=== PATIENT | female | born 1935 | race Caucasian/White ===

== ENCOUNTER → 2018-03-10 09:08 | Outpatient (CLI) | payer MEDICARE, SELFPAY | PROVIDERS: PCP Family Medicine; Visit Provider Family Medicine | DX: I49.9 Cardiac arrhythmia, unspecified (principal) | CPT/HCPCS: 93005 ==

== ENCOUNTER → 2018-03-13 12:42 | Outpatient (CLI) | payer MEDICARE, SELFPAY | PROVIDERS: PCP Family Medicine; Visit Provider Internal Medicine Cardiovascular Disease | DX: Z98.890 Other specified postprocedural states (principal) | CPT/HCPCS: 93225 ==

== ENCOUNTER → 2018-03-18 09:34 | Outpatient (CLI) | payer MEDICARE, SELFPAY | PROVIDERS: PCP Family Medicine; Visit Provider Internal Medicine Cardiovascular Disease | DX: Z98.890 Other specified postprocedural states (principal) | CPT/HCPCS: 93306 ==

== ENCOUNTER → 2019-12-31 08:30 | Outpatient (CLI) | payer MEDICARE, SELFPAY ==
--- NOTE | 2019-12-31 | CA_ITS ---
APPROVED REPORT Repair Department Supervisor: CLYDE Laterality: Bilateral Indications: vertigo Risk Factors Hypertension: Doppler Spectral Velocity Analysis ECA (R) 59.10/7.70 cm/s ECA (L) 70.00/8.30 cm/s dICA (R) 122.30/36.40 cm/s dICA (L) 82.20/25.00 cm/s Ana (R) 110.80/34.70 cm/s Ana (L) 72.60/24.40 cm/s pICA (R) 67.40/15.40 cm/s pICA (L) 59.10/17.30 cm/s dCCA (R) 62.90/16.70 cm/s dCCA (L) 68.10/17.30 cm/s pCCA (R) 86.00/16.70 cm/s pCCA (L) 84.80/14.80 cm/s Vert (R) 43.00/14.10 cm/s Vert (L) 43.00/11.60 cm/s ICA/CCA 1.94 ICA/CCA 1.21 Findings Duplex evaluation demonstrates stenosis of the right proximal internal carotid artery <20% with PSV <140 cm/sec, EDV <100 cm/sec, and IC/CC Ratio <4.0. Duplex evaluation demonstrates stenosis of the left proximal internal carotid artery <20% with PSV <140 cm/sec, EDV <100 cm/sec, and IC/CC Ratio <4.0. Conclusion Duplex evaluation demonstrates stenosis of the right proximal internal carotid artery <20% with PSV <140 cm/sec, EDV <100 cm/sec, and IC/CC Ratio <4.0. Duplex evaluation demonstrates stenosis of the left proximal internal carotid artery <20% with PSV <140 cm/sec, EDV <100 cm/sec, and IC/CC Ratio <4.0. Electronically signed by : Raleigh Stiles MD 12/31/2019 18:13:45
== END ==
PROVIDERS: PCP Family Medicine; Visit Provider Family Medicine
DX: R42 Dizziness and giddiness (principal)
CPT/HCPCS: 93225; 93226; 93880

== ENCOUNTER → 2020-01-13 11:38 | Outpatient (CLI) | payer MEDICARE, SELFPAY ==
[2020-01-13 12:20] LABS: Basophils # 0.1 K/mm3 (0-0.2); Basophils % 0.9 % (0.1-2.0); Eosinophils # 0.4 K/mm3 (0.0-0.4); Eosinophils % 6.9 % (0.1-12.0); Hematocrit 42.8 % (37.0-47.0); Hemoglobin 13.6 g/dL (12.2-16.2); Lymphocytes # 1.6 K/mm3 (0.7-4.5); Lymphocytes % 29.9 % (10-50); Mean Corpuscular HGB Conc 31.7 g/dL (31.8-35.4); Mean Corpuscular Hemoglobin 31.9 pg (27.0-31.2); Mean Corpuscular Volume 100.6 fl (81-99); Mean Platelet Volume 9.7 fl (7.4-10.4); Monocytes # 0.4 K/mm3 (0.1-1.0); Monocytes % 6.9 % (1.7-9.3); Neutrophils % 55.4 % (37.0-80.0); Platelet Count 155 K/mm3 (142-424); Red Blood Count 4.26 M/mm3 (4.20-5.40); Red Cell Distribution Width 13.9 % (11.5-17.5); White Blood Count 5.3 K/mm3 (4.8-10.8)
[2020-01-13 13:30] LABS: Chloride 103 mmol/L (98-107); Potassium 4.6 mmoL/L (3.5-5.1); Sodium 139 mmol/L (136-145)
[2020-01-13 13:33] LABS: Blood Urea Nitrogen 13 mg/dl (7-17); Estimated Glomerular Filt Rate 53 ml/min (>60); GFR (African American) 64 ML/MIN (>60)
[2020-01-13 13:34] LABS: Anion Gap 10.6 mEq/L (5-15); Calcium 9.6 mg/dl (8.4-10.2); Carbon Dioxide 30 mmol/L (22.0-30.0); Glucose 87 mg/dl (74-100)
[2020-01-13 14:46] LABS: Coronavirus 19 IgG Antibody Negative (Negative); Coronavirus 19 IgM Antibody Negative (Negative)
== END ==
PROVIDERS: Visit Provider Internal Medicine Cardiovascular Disease
DX: I10 Essential (primary) hypertension (principal); I48.0 Paroxysmal atrial fibrillation; I49.5 Sick sinus syndrome; R42 Dizziness and giddiness; R55 Syncope and collapse; R94.31 Abnormal electrocardiogram [ECG] [EKG]; Z98.890 Other specified postprocedural states; Z01.818 Encounter for other preprocedural examination
CPT/HCPCS: 36415; 80048; 85025; 86328

== ENCOUNTER 2020-01-14 10:11 | Day surgery (SDC) | payer MEDICARE, SELFPAY ==
[2020-01-14] VITALS (8 sets, daily range): BP systolic 133–153; BP diastolic 62–88; PULSE 73–113; RESP 16; O2SAT 90–100; BMI 22.3
--- NOTE | 2020-01-14 | IR_ITS ---
APPROVED REPORT Patient Location: Outpatient Meat Passer: JEFFY Ureña RT (R) PROCEDURES 1. Pocket formation for Permanent Pacemaker Placement. 2. Placement of an atrial sensing and pacing coil into the right atrial appendage. 3. Placement of a ventricular sensing and pacing coil in the right ventricular apex. 4. Permanent Pacemaker Placement. INDICATION Symptomatic Bradycardia Informed consent was obtained prior to the procedure. COMPLICATIONS None Estimated Blood Loss: Less than 10 ml TECHNIQUE 1% Lidocaine with epinephrine used to anesthetized the left anterior aspect of the chest. Scalpel was used to make the initial cutaneous incision while electrocautery was used to dissect down tinto the fascia. The fascia was lifted off the pectoralis muscle and digitally manipulated creating a pocket for the pacemaker. The patient was then placed in Trendelenburg position and the subclavian vein was accessed twice via the Selinger technique, there are two wires in the vein. A 6 [place] sheath was placed under fluoroscopic guidance into the subclavian vein over one of the wires while keeping the other wire in place within the subclavian vein. The dilator was removed from the sheath. Using fluoroscopic guidance, the ventricular lead was placed into the right ventricular apex, screwed and secured into place. Electronic interrogation proved acceptable thresholds and voltage within the lead. Using 3-0 silk, the ventricular lead was then secured into place. Lead was secured to the facia using the 3-0 silk. Following this, the sheath was pealed away. An additional 6 [place] fresh sheath and dilator was placed over the existing wire. Using fluoroscopic guidance, the atrial lead was the placed into the right atrial appendage and screwed and secured in place. Electrical interrogation demonstrated acceptable thresholds and voltage number. The atrial lead was then secured into place using 3-0 silk. 1 gram of Ancef was used to flush the pocket. Following the pacemaker generator being secured to the fascia and in place, Monocryl was used to close the subcutaneous layers while crystal were used to close the cutaneous layer. A pressure dressing was placed and the patient was transferred to the postop holding area in stable condition for postoperative care. INTERROGATION Generator Model: Virdia DR IS-1 L311 Generator Serial No: [id number] RA Lead Model: Ingevity + IS-1 Bi Postitive Fix RA/RV 45 CM 7840 RA Lead Serial No: [id number] RV Lead Model: Ingevity + IS-1 Bi Postitive Fix RA/RV 52 CM 7841 RA Lead Serial No: [id number] Device Measurements: RA Lead: Intrinsic: 1.5 mV Threshold: 1.2V@4.0ms Impedence: 450 Ohms RV Lead: Intrinsic: 12.0 mV Threshold: 0.3V@0.4 ms Impedence: 800 Ohms Parameters: Mode: DDDR Base/Max: 60/130ppm IMPRESSION 1. Successful Pocket formation for Permanent Pacemaker Placement. 2. Successful Placement of an atrial sensing and pacing coil into the right atrial appendage. 3. Successful Placement of a ventricular sensing and pacing coil in the right ventricular apex. 4. Successful Permanent Pacemaker Placement. PLAN 1. Post Op Wound Care Electronically signed by : Gaurav Galvez, 01/18/2020 11:20:40
--- NOTE | 2020-01-14 11:43 | XR_ITS ---
PROCEDURE: XR CHEST PORTABLE CLINICAL HISTORY: Confirm pacemaker/AID placement COMPARISON: No exams were available for comparison FINDINGS: Mild cardiomegaly. Bipolar pacemaker is present from left subclavian approach with right atrial right ventricular lead which appears to be in good position. Prior median sternotomy with AVR. No evidence of pneumothorax. There are minimal atelectatic changes in the lower lobes. IMPRESSION: As above, good pacemaker placement without evidence of pneumothorax Dictated by: Cornel Garcia MD 01/14/2020 16:49 Cornel aGrcia MD in [place] 01/14/2020 16:49
== END 2020-01-14 14:34 | disposition home or self-care (01) ==
LOC: CATHLAB 10:13
PROVIDERS: PCP Family Medicine; Visit Provider Internal Medicine
DX: I49.5 Sick sinus syndrome (principal); I48.0 Paroxysmal atrial fibrillation; I10 Essential (primary) hypertension; R55 Syncope and collapse
CPT/HCPCS: 33208; 71045; 99152; 99153; C1785; C1898

== ENCOUNTER 2020-07-01 14:02 | Emergency (ER) | payer MEDICARE, SELFPAY ==
[2020-07-01] VITALS (10 sets, daily range): BP systolic 95–134; BP diastolic 53–77; PULSE 45–91; RESP 14–30; TEMP 36.4; O2SAT 95–99; BMI 27.3
--- NOTE | 2020-07-01 14:28 | ECG_ITS ---
APPROVED REPORT Exam: Resting ECG HR:84 bpm ECG Measurements Heart Rate 84 AXES QRSd 70 QRS 62 QT 344 T -31 QTc 406 Conclusion Demand pacemaker, interpretation is based on intrinsic rhythm Atrial fibrillation with premature ventricular or aberrantly conducted complexes Nonspecific ST and T wave abnormality, probably digitalis effect Abnormal ECG Electronically signed by : Carlton Cortez, 07/02/2020 21:09:57
--- NOTE | 2020-07-01 14:47 | XR_ITS ---
PROCEDURE: XR CHEST PORTABLE CLINICAL HISTORY: SOB COMPARISON: CR XR CHEST PORTABLE from 01/14/2020 FINDINGS: The lung cohn are well expanded and appear clear of infiltrate. Cardiac size is normal. There has been a previous cardiac valve replacement likely aortic. There are sternal wire sutures. There is a left-sided cardiac pacemaker with dual chamber electrodes both in good position. IMPRESSION: No acute findings. Dictated by: Dr. Martín Palmer MD 07/01/2020 15:52 Dr. Martín Palmer MD in [place] 07/01/2020 15:52
[2020-07-01 15:07] LABS: Basophils % 0.4 % (0.1-2.0); Eosinophils # 0.2 K/mm3 (0.0-0.4); Eosinophils % 2.2 % (0.1-12.0); Hematocrit 43.3 % (37.0-47.0); Hemoglobin 13.3 g/dL (12.2-16.2); Lymphocytes # 1.2 K/mm3 (0.7-4.5); Lymphocytes % 15.7 % (10-50); Mean Corpuscular HGB Conc 30.8 g/dL (31.8-35.4); Mean Corpuscular Hemoglobin 30.2 pg (27.0-31.2); Mean Platelet Volume 9.6 fl (7.4-10.4); Monocytes # 0.4 K/mm3 (0.1-1.0); Monocytes % 5.1 % (1.7-9.3); Neutrophils # 5.8 K/mm3 (1.8-7.8); Neutrophils % 76.5 % (37.0-80.0); Platelet Count 172 K/mm3 (142-424); Red Blood Count 4.42 M/mm3 (4.20-5.40); White Blood Count 7.5 K/mm3 (4.8-10.8)
[2020-07-01 15:08] LABS: Chloride 106 mmol/L (98-107)
[2020-07-01 15:09] LABS: Potassium 4.1 mmoL/L (3.5-5.1); Sodium 137 mmol/L (136-145)
[2020-07-01 15:11] LABS: Alanine Aminotransferase 17 U/L (12-78); Albumin Level 4.1 g/dl (3.5-5.0); Albumin/Globulin Ratio 1.5 (1.1-1.8); Alkaline Phosphatase 66 U/L (38-126); Aspartate Amino Transferase 32 U/L (14-36); Bilirubin,Total 0.6 mg/dl (0.2-1.3); Blood Urea Nitrogen 19 mg/dl (7-17); Creatinine Clearance Estimated 33 mL/min (50-200); Estimated Glomerular Filt Rate 39 ml/min (>60); GFR (African American) 47 ML/MIN (>60); Globulin 2.7 g/dL (1.3-3.2); Total Protein,Serum 6.8 g/dl (6.3-8.2)
[2020-07-01 15:12] LABS: Anion Gap 8.1 mEq/L (5-15); Calcium 9.4 mg/dl (8.4-10.2); Carbon Dioxide 27 mmol/L (22.0-30.0); Glucose 116 mg/dl (74-100)
[2020-07-01 15:28] LABS: Troponin I < 0.01 ng/ml (0.00-0.034)
--- NOTE | 2020-07-01 15:29 | HMH.EDGENADL ---
ED Disposition Clinical Impression: Orthostatic hypotension Disposition: Home, Self-Care Condition on Discharge: Good Additional Instructions: Please drink plenty of fluids Please follow-up with your PCP Symptoms persist or worsen, please follow-up with your PCP or return to the ED Referrals: Adia Valverde MD [Primary Care Provider] - - Critical Care Critical Care Time: No Attestation: On 07/01/20, the high probability of a clinically significant, sudden or life threatening deterioration of the following system(s) required my full and direct attention, intervention and personal management. The time I documented below is in addition to time spent performing reported procedures but includes the following listed in this critical care notation. Medical Decision Making - Medical Records Medical records reviewed: Yes: I reviewed the patient's medical records. - [place] Inquiry Pt receiving controlled substance: No Vital Signs: 07/01/20 14:02 07/01/20 14:30 07/01/20 15:06 Temperature 97.6 F Temperature Source Oral Pulse Rate Pulse Rate [Left Radial] 64 51 L 84 Respiratory Rate 30 H 18 18 Blood Pressure Blood Pressure [Right Arm] 115/73 110/62 109/53 L Blood Pressure Mean Blood Pressure Mean [Right Arm] 87 78 71 Blood Pressure Source [Right Arm] Automatic Cuff Automatic Cuff Automatic Cuff Blood Pressure Position [Right Arm] Supine Sitting 02 Sat by Pulse Oximetry 97 98 98 Oxygen Delivery Method Room Air Room Air 07/01/20 15:17 07/01/20 16:31 07/01/20 17:00 Temperature Temperature Source Pulse Rate 63 68 Pulse Rate [Left Radial] 91 H Respiratory Rate 14 23 16 Blood Pressure 121/66 124/69 Blood Pressure [Right Arm] 95/58 L Blood Pressure Mean 84 94 Blood Pressure Mean [Right Arm] 70 Blood Pressure Source [Right Arm] Automatic Cuff Blood Pressure Position [Right Arm] Supine 02 Sat by Pulse Oximetry 95 97 Oxygen Delivery Method 07/01/20 17:20 07/01/20 17:30 Temperature Temperature Source Pulse Rate 46 L 55 L Pulse Rate [Left Radial] Respiratory Rate 19 23 Blood Pressure 134/54 L 117/77 Blood Pressure [Right Arm] Blood Pressure Mean 80 84 Blood Pressure Mean [Right Arm] Blood Pressure Source [Right Arm] Blood Pressure Position [Right Arm] 02 Sat by Pulse Oximetry 99 98 Oxygen Delivery Method - Lab Data Lab Results 07/01/20 14:48: WBC 7.5, RBC 4.42, Hgb 13.3, Hct 43.3, MCV 98.0, MCH 30.2, MCHC 30.8 L, RDW 14.0, Plt Count 172, MPV 9.6, Neut % (Auto) 76.5, Lymph % (Auto) 15.7, [place] % (Auto) 5.1, Eos % (Auto) 2.2, Baso % (Auto) 0.4, Neut # (Auto) 5.8, Lymph # (Auto) 1.2, [place] # (Auto) 0.4, Eos # (Auto) 0.2, Baso # (Auto) 0.0 07/01/20 14:48: Sodium 137, Potassium 4.1, Chloride 106, Carbon Dioxide 27, Anion Gap 8.1, BUN 19 H, Creatinine 1.30 H, Estimated Creat Clear 33, Estimated GFR 39 L, Est GFR ( Amer) 47 L, Glucose 116 H, Calcium 9.4, Total Bilirubin 0.6, AST 32, ALT 17, Alkaline Phosphatase 66, Troponin I < 0.01, Total Protein 6.8, Albumin 4.1, Globulin 2.7, Albumin/Globulin Ratio 1.5 Result diagrams: 07/01/20 14:48 07/01/20 14:48 Orders (Tests/Meds): ED MEDICATIONS Generic Name Dose Route Start Last Admin Trade Name Freq PRN Reason Stop Dose Admin Sodium Chloride 1,000 mls @ 999 mls/hr 07/01/20 15:15 07/01/20 15:19 Sod Chlor 0.9% 1000ml Bag IV 07/01/20 16:15 999 mls/hr .Q1H1M LEIGH ANN Administration ORDERS Category Date Time Status Troponin I Q3H Lab 07/01/20 17:48 Received Troponin I Q3H Lab 07/01/20 21:00 Ordered Medical Decision Narrative: Patient is a well-appearing 84-year-old female presenting with dizziness when standing and decreased p.o. intake. Patient has not had any vomiting or diarrhea, but was hypotensive at home. Differential diagnose includes but not limited to orthostatic hypotension, vertigo, electrolyte abnormality. Labs including CBC, CMP were obtained. Patient was given a
[2020-07-01 18:19] LABS: Troponin I < 0.01 ng/ml (0.00-0.034)
== END 2020-07-01 18:37 | disposition home or self-care (01) ==
PROVIDERS: Emergency Provider Emergency Medicine; PCP Family Medicine
DX: I95.1 Orthostatic hypotension (principal); I10 Essential (primary) hypertension; I25.10 Atherosclerotic heart disease of native coronary artery without angina pectoris; Z95.0 Presence of cardiac pacemaker; Z98.890 Other specified postprocedural states
CPT/HCPCS: 71045; 80053; 84484; 85025; 93005; 96365; 99283

== ENCOUNTER → 2021-01-11 11:58 | Outpatient (CLI) | payer MEDICARE, SELFPAY ==
[2021-01-11 12:46] LABS: Chloride 105 mmol/L (98-107); Sodium 139 mmol/L (136-145)
[2021-01-11 12:47] LABS: Potassium 4.2 mmoL/L (3.5-5.1)
[2021-01-11 12:49] LABS: Anion Gap 9.2 mEq/L (5-15); Blood Urea Nitrogen 12 mg/dl (7-17); Carbon Dioxide 29 mmol/L (22.0-30.0); Estimated Glomerular Filt Rate 53 ml/min (>60); GFR (African American) 64 ML/MIN (>60)
[2021-01-11 12:50] LABS: Calcium 9.2 mg/dl (8.4-10.2); Glucose 92 mg/dl (74-100)
== END ==
PROVIDERS: Visit Provider Physician Assistant
DX: I10 Essential (primary) hypertension (principal); I48.0 Paroxysmal atrial fibrillation
CPT/HCPCS: 36415; 80048

== ENCOUNTER → 2021-08-22 08:57 | Outpatient (CLI) | payer MEDICARE, SELFPAY ==
--- NOTE | 2021-08-22 09:02 | XR_ITS ---
FINAL REPORT TECHNIQUE: Bone densitometry calculations of the lumbar spine and left hip were obtained. CLINICAL HISTORY: . osteopenia FINDINGS: Using L1-4, the bone mineral density of the spine is 0.864 g/cm2, corresponding to T-score of -1.7. Using the left hip, the bone mineral density of the femoral neck is 0.514 g/cm2, corresponding to a T-score of -3.0. NOTE: T-score: Standard deviation compared with peak bone mass of young adult mean. *Following the recommendations of the International Society of Bone densitometry, classification of hip BMD is based on the lower of two T-scores; total hip or femoral neck. 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 Reviewed, Interpreted and Dictated by Danielle Fuentes MD Transcribed by Adrien Bauer Authenticated by Danielle Fuentes MD on 08/24/2021 04:59:34 PM [facility]
--- NOTE | 2021-08-22 09:03 | XR_ITS ---
FINAL REPORT CLINICAL HISTORY: low back pain FINDINGS: AP, lateral, and oblique views of the lumbar spine were obtained. There is no acute fracture. There is very mild grade 1 anterior spondylolisthesis of L4 on L5. There is dextroscoliosis. Vertebral body height is preserved. There is multilevel degenerative disc disease most pronounced in the lower lumbar levels. No acute paraspinal abnormality is identified. IMPRESSION: Multilevel degenerative disc disease most pronounced in the lower lumbar levels. Very mild grade 1 anterior spondylolisthesis of L4 on L5. Reviewed, Interpreted and Dictated by Danielle Fuentes MD Transcribed by Farnaz Granda Authenticated by Danielle Fuentes MD on 08/22/2021 01:16:31 PM [facility]
--- NOTE | 2021-08-22 09:03 | XR_ITS ---
FINAL REPORT CLINICAL HISTORY: rt hip pain FINDINGS: AP and frog leg views of the right hip with an AP pelvis were obtained. There is no prior exam for comparison. There is no acute fracture or dislocation. There is degenerative joint disease of the hips bilaterally, asymmetric to the right. Soft tissues are within normal limits. IMPRESSION: 1. No acute osseous abnormality of the right hip. 2. Degenerative disease of the right hip. Reviewed, Interpreted and Dictated by Danielle Fuentes MD Transcribed by Farnaz Granda Authenticated by Danielle Fuentes MD on 08/22/2021 01:19:[address] [facility]
== END ==
PROVIDERS: PCP Family Medicine; Visit Provider Family Medicine
DX: M85.89 Other specified disorders of bone density and structure, multiple sites (principal); M25.551 Pain in right hip; M54.41 Lumbago with sciatica, right side
CPT/HCPCS: 72110; 73502; 77080

== ENCOUNTER → 2021-10-01 08:54 | Outpatient (CLI) | payer MEDICARE, SELFPAY ==
[2021-09-28 19:55] LABS: Alanine Aminotransferase 9 U/L (12-78); Albumin Level 3.8 g/dl (3.5-5.0); Albumin/Globulin Ratio 1.7 (1.1-1.8); Alkaline Phosphatase 61 U/L (38-126); Anion Gap 9.4 mEq/L (5-15); Aspartate Amino Transferase 20 U/L (14-36); Blood Urea Nitrogen 17 mg/dl (7-17); Calcium 9.1 mg/dl (8.4-10.2); Carbon Dioxide 29 mmol/L (22.0-30.0); Chloride 103 mmol/L (98-107); Estimated Glomerular Filt Rate 53 ml/min (>60); GFR (African American) 64 ML/MIN (>60); Globulin 2.3 g/dL (1.3-3.2); Glucose 72 mg/dl (74-100); Potassium 4.4 mmoL/L (3.5-5.1); Sodium 137 mmol/L (136-145); Total Protein,Serum 6.1 g/dl (6.3-8.2)
[2021-09-28 19:57] LABS: Bilirubin,Total 0.1 mg/dl (0.2-1.3)
== END ==
PROVIDERS: Visit Provider Family Medicine
DX: I10 Essential (primary) hypertension (principal)
CPT/HCPCS: 80053

== ENCOUNTER → 2022-01-01 10:08 | Outpatient (CLI) | payer MEDICARE, SELFPAY ==
--- NOTE | 2022-01-01 10:20 | XR_ITS ---
FINAL REPORT CLINICAL HISTORY: rt hip pain COMPARISON: 08/22/2021 FINDINGS: Right hip Three views were obtained. There is no acute fracture or dislocation. There are severe right and mild left degenerative changes. There are moderate to severe degenerative changes of the lower lumbar spine. Multiple phleboliths are noted. No acute soft tissue abnormality is identified. IMPRESSION: Degenerative changes as detailed above. Reviewed, Interpreted and Dictated by Sean Clancy III, MD Transcribed by Maritza Mccray Authenticated and [facility]
== END ==
PROVIDERS: PCP Family Medicine; Visit Provider Orthopaedic Surgery
DX: M16.11 Unilateral primary osteoarthritis, right hip (principal)
CPT/HCPCS: 73502

== ENCOUNTER → 2022-01-08 11:00 | Outpatient (CLI) | payer MEDICARE, SELFPAY ==
[2022-01-08 19:06] LABS: Anion Gap 13.5 mEq/L (5-15); Blood Urea Nitrogen 17 mg/dl (7-17); Calcium 8.7 mg/dl (8.4-10.2); Carbon Dioxide 25 mmol/L (22.0-30.0); Chloride 102 mmol/L (98-107); Estimated Glomerular Filt Rate 52 ml/min (>60); GFR (African American) 63 ML/MIN (>60); Glucose 143 mg/dl (74-100); Potassium 4.5 mmoL/L (3.5-5.1); Sodium 136 mmol/L (136-145)
== END ==
PROVIDERS: PCP Family Medicine; Visit Provider Family Medicine
DX: I48.0 Paroxysmal atrial fibrillation (principal)
CPT/HCPCS: 80048

== ENCOUNTER 2022-01-18 10:11 | Day surgery (SDC) | payer MEDICARE, SELFPAY ==
[2022-01-18 10:49] VITALS: BP 110/81; PULSE 86; RESP 18; TEMP 36.6; O2SAT 94; BMI 21.5
[2022-01-18 11:12] LABS: Basophils # 0.1 K/mm3 (0-0.2); Basophils % 0.7 % (0.1-2.0); Eosinophils # 0.1 K/mm3 (0.0-0.4); Eosinophils % 0.9 % (0.1-12.0); Hematocrit 41.5 % (37.0-47.0); Hemoglobin 13.2 g/dL (12.2-16.2); Lymphocytes # 1.8 K/mm3 (0.7-4.5); Lymphocytes % 19.8 % (10-50); Mean Corpuscular HGB Conc 31.9 g/dL (31.8-35.4); Mean Corpuscular Hemoglobin 30.3 pg (27.0-31.2); Mean Platelet Volume 9.6 fl (7.4-10.4); Monocytes # 0.6 K/mm3 (0.1-1.0); Monocytes % 6.4 % (1.7-9.3); Neutrophils # 6.6 K/mm3 (1.8-7.8); Neutrophils % 72.2 % (37.0-80.0); Platelet Count 236 K/mm3 (142-424); Red Blood Count 4.37 M/mm3 (4.20-5.40); Red Cell Distribution Width 14.7 % (11.5-17.5); White Blood Count 9.1 K/mm3 (4.8-10.8)
[2022-01-18 11:25] LABS: Anion Gap 10.6 mEq/L (5-15); Blood Urea Nitrogen 16 mg/dl (7-17); Calcium 8.4 mg/dl (8.4-10.2); Carbon Dioxide 31 mmol/L (22.0-30.0); Chloride 101 mmol/L (98-107); Creatinine Clearance Estimated 30 mL/min (50-200); Estimated Glomerular Filt Rate 47 ml/min (>60); GFR (African American) 57 ML/MIN (>60); Glucose 87 mg/dl (74-100); Potassium 3.6 mmoL/L (3.5-5.1); Sodium 139 mmol/L (136-145)
[2022-01-18 11:53] VITALS: BP 79/51; PULSE 73; RESP 18; O2SAT 93
--- NOTE | 2022-01-18 11:53 | EXP.OP.NOTE ---
Date of procedure: 01/18/22 Pre-op Diagnosis:: Right hip osteoarthritis Post-op Diagnosis:: Same Procedure performed:: Right hip injection with arthrogram Surgeon:: Bronson James DO Anesthesia: MAC Estimated blood loss (mL): 0 Operative findings:: Right hip osteoarthritis Operative note:: Patient identified preoperatively right hip marked with a yes and my initials. Transferred operative suite placed supine on the radiolucent bed. Sedation given. Right hip prepped and draped normal sterile fashion. Once prepped and draped final operative timeout performed to identify proper patient procedure and extremity everyone involved the case agreed no counter indication beginning. C-arm was brought into identify the right hip joint. C arm was used to confirm proper trajectory 18-gauge spinal needle into the hip joint. Once within the hip joint arthrogram was performed with contrast. 80 mg Kenalog 3 cc 1% lidocaine injected the hip joint. Needle removed Band-Aid placed patient waken sedation taken recovery stable condition Condition: stable Disposition: PACU Complications:: None apparent
--- NOTE | 2022-01-18 11:54 | XR_ITS ---
FINAL REPORT CLINICAL HISTORY: RT HIP INJECTION IN OR 3.25 fluoro time FINDINGS: Fluoroscopic guidance was provided for the operating services. A single spot film was provided. 3 minutes 25 seconds of fluoroscopy time was utilized. IMPRESSION: 3 minutes 25 seconds of fluoroscopy time. Reviewed, Interpreted and Dictated by Sean Clancy III, MD Transcribed by Adrien Bauer Authenticated and [facility]
[2022-01-18 12:03] VITALS: BP 96/53; PULSE 69; RESP 18; O2SAT 98
[2022-01-18 12:20] VITALS: BP 110/69; PULSE 69; RESP 18; O2SAT 98
--- NOTE | 2022-01-18 12:37 | P.PN_ITS ---
[facility] Medical History Abnormal Holter monitor finding Arthropathy of right hip Prednisone ordered. We will schedule appointment with orthopedic surgery. Cardiac pacemaker in situ Dizziness Lightheaded Near syncope PAC (premature atrial contraction) PAF (paroxysmal atrial fibrillation) PVC (premature ventricular contraction) Sick sinus syndrome Surgical History History of mitral valve repair Family History Other Coronary artery disease Social History (Updated 01/18/22 @ 10:48 by Sonu Cartagena RN) Smoking Status: Never smoker alcohol intake: never substance use type: denies use current occupational status: employed Travel in the last 8 weeks: None household members: other current occupation: accountant certified public caffeine: No [facility] Anesthesia Checklist Patient Identification Patient Identification: Arm Band and Verbal (Name & ) Structural Data Admitted From: Home Planned Operative Procedure/s: RIGHT HIP INJECTION Consent for Planned Operative Procedure(s) Verified: Yes Verified Documents: Surgical Consent NPO Status Verified Time NPO: 07:00 Chart Verification Results Verified: CBC Additional verifications Anesthesia Reactions: No Hx Blood Transfusions: No Blood Transfusion Reaction: No Airway Assessment C-Spine Mobility Assessed: Yes TMJ Mobility Assessed: Yes Dentition: Good Dentition Neurological Assessment Level of Consciousness: Awake, Alert and Appropriate Anesthesia Plan Anesthesia Risk discussed: Yes ASA Class: III Anesthesia Type: MAC
== END 2022-01-18 12:23 | disposition home or self-care (01) ==
PROVIDERS: PCP Family Medicine; Visit Provider Orthopaedic Surgery
DX: M16.11 Unilateral primary osteoarthritis, right hip (principal); I49.5 Sick sinus syndrome; Z95.0 Presence of cardiac pacemaker; Z79.899 Other long term (current) drug therapy; I48.91 Unspecified atrial fibrillation
CPT/HCPCS: 20610; 36415; 73502; 76000; 80048; 85025

== ENCOUNTER 2022-09-09 16:52 | Inpatient (IN) | payer MEDICARE, SELFPAY ==
[2022-09-09] VITALS (13 sets, daily range): BP systolic 117–154; BP diastolic 47–92; PULSE 78–90; RESP 17–21; TEMP 36.4–37.1; O2SAT 96–100; BMI 16.5
--- NOTE | 2022-09-09 17:09 | CT_ITS ---
PROCEDURE INFORMATION: Exam: CT Abdomen And Pelvis With Contrast Exam date and time: 09/09/2022 6:06 PM Age: 86 years old Clinical indication: Other: Dark tar stool; Additional info: Dark tarry stool TECHNIQUE: Imaging protocol: Computed tomography of the abdomen and pelvis with contrast. Radiation optimization: All CT scans at this facility use at least one of these dose optimization techniques: automated exposure control; mA and/or kV adjustment per patient size (includes targeted exams where dose is matched to clinical indication); or iterative reconstruction. Contrast material: ISOVUE; Contrast volume: 75 ml; Contrast route: IV; REPORTING DATA: Count of CT and Cardiac NM exams in prior 12 months: This patient has received 0 known CTs and 0 known cardiac nuclear medicine studies in the 12 months prior to the current study. COMPARISON: CR XR HIP RT 2-3V W/PELVIS 01/18/2022 11:45 AM FINDINGS: Tubes, catheters and devices: Pacemaker leads partially visualized without gross complication or change. Retained epicardial leads noted in the rightward epigastric region. Lungs: Mild atelectasis in the lung bases. Respiratory motion limits assessment of the lung bases. Heart: Moderate cardiomegaly. Diaphragm: Small hiatal hernia. Liver: Mild fatty infiltration of the liver. Normal contour. Well-circumscribed low-density lesion in the right hepatic lobe demonstrating benign CT features most consistent with hepatic cyst. No further imaging characterization/followup is required based on current consensus criteria. No intrahepatic biliary ductal dilatation. Gallbladder and bile ducts: Gallbladder assessment limited by respiratory motion artifact without gross abnormality. Nondilated bile ducts. Pancreas: Normal. No inflammatory changes or ductal dilation. Spleen: Normal. No splenomegaly. Adrenal glands: Normal. No adrenal mass. Kidneys and ureters: No acute abnormalities. No hydronephrosis or hydroureter. No urinary tract stones are identified. Bilateral subcentimeter renal cortical cysts are present which do not require further assessment. Stomach and bowel: The stomach is largely contracted. The small bowel is nondilated with no gross abnormality. Generalized mild colonic wall thickening suggesting colitis. No perforation or abscess. No sites of active GI hemorrhage are identified with single phase technique. Appendix: The appendix demonstrates slight wall thickening commensurate with the generalized colonic wall thickening and felt to be related to generalized colitis, with no dilatation or periappendiceal stranding to suggest appendicitis. Intraperitoneal space: No free fluid or air. Vasculature: No acute process. No abdominal aortic aneurysm. Moderate calcific atherosclerosis. Lymph nodes: No adenopathy. Urinary bladder: Unremarkable as visualized. Reproductive: Unremarkable as visualized. Bones/joints: Prior median sternotomy. No acute osseous abnormalities. Osteopenia. Rightward convexity lumbar scoliosis. Bipolar right hip arthroplasty without gross hardware complication. Multilevel moderate lumbar disc degenerative changes and osteoarthritic spurring. Soft tissues: Small fatty periumbilical hernia . No evidence of associated bowel herniation or strangulation. IMPRESSION: 1. No sites of active GI hemorrhage are identified. Nuclear medicine tagged RBC GI bleeding study would allow more sensitive/specific assessment for active GI hemorrhage if clinically indicated. 2. Mild generalized colonic wall thickening with slight adjacent stranding, suspicious for colitis. No perforation or abscess. 3. Additional nonemergent findings detail
[2022-09-09 17:30] LABS: Basophils % 0.3 % (0.1-2.0); Eosinophils # 0.1 K/mm3 (0.0-0.4); Eosinophils % 0.6 % (0.1-12.0); Hematocrit 26.2 % (37.0-47.0); Lymphocytes % 12.3 % (10-50); Mean Corpuscular HGB Conc 30.7 g/dL (31.8-35.4); Mean Corpuscular Hemoglobin 29.2 pg (27.0-31.2); Mean Corpuscular Volume 95.2 fl (81-99); Monocytes # 0.4 K/mm3 (0.1-1.0); Monocytes % 4.6 % (1.7-9.3); Neutrophils # 6.4 K/mm3 (1.8-7.8); Neutrophils % 82.1 % (37.0-80.0); Platelet Count 220 K/mm3 (142-424); Red Blood Count 2.75 M/mm3 (4.20-5.40); Red Cell Distribution Width 18.6 % (11.5-17.5); White Blood Count 7.7 K/mm3 (4.8-10.8)
[2022-09-09 17:31] LABS: Alanine Aminotransferase 20 U/L (12-78); Albumin Level 3.1 g/dl (3.5-5.0); Albumin/Globulin Ratio 1.3 (1.1-1.8); Alkaline Phosphatase 58 U/L (38-126); Anion Gap 13.6 mEq/L (5-15); Aspartate Amino Transferase 27 U/L (14-36); Bilirubin,Total 0.3 mg/dl (0.2-1.3); Blood Urea Nitrogen 55 mg/dl (7-17); Calcium 7.9 mg/dl (8.4-10.2); Carbon Dioxide 20 mmol/L (22.0-30.0); Chloride 109 mmol/L (98-107); Creatinine Clearance Estimated 28 mL/min (50-200); Estimated Glomerular Filt Rate 59 ml/min (>60); GFR (African American) 72 ML/MIN (>60); Globulin 2.3 g/dL (1.3-3.2); Glucose 104 mg/dl (74-100); Potassium 4.6 mmoL/L (3.5-5.1); Sodium 138 mmol/L (136-145); Total Protein,Serum 5.4 g/dl (6.3-8.2)
[2022-09-09 17:31] LABS: Occult Blood,Stool Positive (Negative)
[2022-09-09 17:48] LABS: Troponin I < 0.01 ng/ml (0.00-0.034)
--- NOTE | 2022-09-09 18:08 | PC.NURSE ---
pt to CT at this time
[2022-09-09 18:34] LABS: Coronavirus 19, PCR Not Detected (NotDetected); Influenza A, PCR Not Detected (NotDetected); Influenza B, PCR Not Detected (NotDetected)
--- NOTE | 2022-09-09 18:45 | HMH.EDGENADL ---
Discharge Plan Disposition Patient Disposition: Admitted Condition: Fair Chief Complaint: GI Bleed Prescriptions Prescriptions: No Action aspirin [Adult Low Dose Aspirin] 81 mg tablet,delayed release (DR/EC) 81 mg PO DAILY vitamin B complex [B Complex-Vitamin B12] tablet 1 tab PO DAILY cholecalciferol (vitamin D3) 2,000 unit capsule 2,000 unit PO DAILY tramadol 50 mg tablet 50 mg PO Q6H PRN (Reason: hip pain) Qty: 40 0RF metoprolol succinate 25 mg tablet extended release 24 hr 25 mg PO DAILY Qty: 90 3RF celecoxib 200 mg capsule 200 mg PO DAILY tizanidine 2 mg tablet 2 mg PO DAILY oxycodone 5 mg tablet 5 mg PO NEEDED PRN (Reason: Pain) diltiazem HCl 120 mg capsule,extended release 24hr 120 mg PO DAILY furosemide 20 mg tablet See Rx Instructions .ROUTE .COMPLEX Rx Instructions: TAKE 1 TABLET BY MOUTH EVERY OTHER DAY fluticasone propion-salmeterol [Wixela Inhub] 100-50 mcg/dose blister with device See Rx Instructions .ROUTE .COMPLEX Rx Instructions: INHALE 1 PUFF TWICE A DAY FOR BRONCHIOLITIS Eliquis 2.5 mg tablet See Rx Instructions .ROUTE .COMPLEX Rx Instructions: TAKE 1 TABLET BY MOUTH TWICE A DAY Referrals Follow up/Referrals: Adia Valverde MD [Primary Care Provider] - See instructions Instructions Patient Instructions: DI for Gastrointestinal Bleeding Discharge ED Provider: Evan Wagoner Adult HPI General Chief complaint: GI Bleed Stated complaint: weakness Time Seen by Provider: 09/09/22 17:50 Mode of Arrival: EMS Source of Information: Patient Limitations: No Limitations Description of Symptoms (Recalled from ER Triage Doc. by RN): pt to the ED with dizziness, light headed and 3 episodes of dark tarry stools since this morning. pt denies any nausea,vomiting or abdominal pain. pt is on eliquis for her afib. History of Present Illness HPI narrative: This is a 86-year-old female who is on Eliquis who presents to the emergency room with lower abdominal pain and black stool. No nausea vomiting patient also complaining of lightheadedness. Related Data Home Medications Medication Instructions Recorded Confirmed aspirin 81 mg tablet,delayed 81 mg PO DAILY . 03/13/18 08/13/22 release (Adult Low Dose Aspirin) cholecalciferol (vitamin D3) 50 2,000 unit PO DAILY Supplement 03/13/18 08/13/22 mcg (2,000 unit) capsule vitamin B complex (B 1 tab PO DAILY Supplement 03/13/18 08/13/22 Complex-Vitamin B12 tablet) apixaban 2.5 mg tablet (Eliquis) See Rx Instructions .Route 09/09/22 09/09/22 .COMPLEX afib celecoxib 200 mg capsule 200 mg PO DAILY migraines 09/09/22 09/09/22 diltiazem HCl 120 mg 120 mg PO DAILY afib 09/09/22 09/09/22 capsule,extended release 24 hr fluticasone 100 mcg-salmeterol 50 See Rx Instructions .Route 09/09/22 09/09/22 mcg/dose blistr powdr for .COMPLEX SOB inhalation (Wixela Inhub) furosemide 20 mg tablet See Rx Instructions .Route 09/09/22 09/09/22 .COMPLEX Fluid oxycodone 5 mg tablet 5 mg PO NEEDED PRN Pain 09/09/22 09/09/22 tizanidine 2 mg tablet 2 mg PO DAILY muscle spasms 09/09/22 09/09/22 Previous Rx's Medication Instructions Recorded tramadol 50 mg tablet 50 mg PO Q6H PRN hip pain #40 tabs 05/17/22 metoprolol succinate 25 mg 25 mg PO DAILY bp #90 tabs 07/15/22 tablet,extended release 24 hr Allergies Allergy/AdvReac Type Severity Reaction Status Date / Time No Known Allergies Allergy Verified 08/13/22 11:43 [facility] Disclaimer: The information contained in this section may have been updated after the patient was seen, as this information can be updated by other users. Medical History Abnormal Holter monitor finding Arthropathy of right hip Bronchiolitis Cardiac pacemaker in situ Cough Dizziness Lightheaded Near syncope PAC (premature atrial contraction) PAF (paroxys
--- NOTE | 2022-09-09 18:46 | PC.NURSE ---
notified greenhouse worker of admission
--- NOTE | 2022-09-09 18:47 | PC.NURSE ---
impregnating tank operator paging surgeon medical director occupational health
--- NOTE | 2022-09-09 18:49 | PC.NURSE ---
gripper machine operator states had to leave a message for dr. aguilar
--- NOTE | 2022-09-09 18:56 | PC.NURSE ---
pt placed on a purwick at this time
--- NOTE | 2022-09-09 19:06 | ECG_ITS ---
APPROVED REPORT Exam: Resting ECG HR:83 bpm ECG Measurements Heart Rate 83 AXES QRSd 88 QRS 79 QT 385 T -1 QTc 425 Conclusion ATRIAL FIBRILLATION POSSIBLE RIGHT VENTRICULAR CONDUCTION DELAY [RSR (QR) IN V1/V2] MODERATE T-WAVE ABNORMALITY, CONSIDER ANTEROLATERAL ISCHEMIA [-0.1+ mV T-WAVE IN V3-V6] MODERATE T-WAVE ABNORMALITY, CONSIDER INFERIOR ISCHEMIA [-0.1+ mV T-WAVE IN II/aVF] ABNORMAL ECG UNCONFIRMED REPORT Electronically signed by : Carlton Cortez MD 09/10/2022 20:07:35
--- NOTE | 2022-09-09 19:16 | PC.NURSE ---
report given to RHONDA Simon
--- NOTE | 2022-09-09 19:18 | PC.NURSE ---
IV pump unavailable at this time. protonix drip mix and sent up with pt and given in report with RHONDA Randolph
--- NOTE | 2022-09-09 19:33 | PC.NURSE ---
pt arrived to floor at this time
[2022-09-09 21:15] LABS: Troponin I < 0.01 ng/ml (0.00-0.034)
[2022-09-09 23:54] LABS: Troponin I < 0.01 ng/ml (0.00-0.034)
[2022-09-10] VITALS (23 sets, daily range): BP systolic 115–154; BP diastolic 53–71; PULSE 58–95; RESP 16–20; TEMP 36.3–37.1; O2SAT 90–100
[2022-09-10 02:14] LABS: Hematocrit 27.9 % (37.0-47.0); Hemoglobin 8.5 g/dL (12.2-16.2)
--- NOTE | 2022-09-10 07:12 | EXP.SURG.CON ---
History of Present Illness *Admission Date: 09/10/22 *Reason for visit:: GI bleeding *History of present illness: Patient is an 86-year-old female from [place] with history of mitral valve repair on Eliquis. She has cardiac pacemaker. She presented to the emergency department the afternoon of 09/09/2022 with complaints of dizziness, lightheadedness, and dark tarry stools. She was found to have hemoglobin of 8.0, BUN 55, creatinine 0.9. Baseline hemoglobin is 13. CT scan was performed which revealed no sites of active GI hemorrhage . She was admitted for inpatient management. She was transfused 1 unit with resultant hemoglobin of 8.5. [facility] Disclaimer: The information contained in this section may have been updated after the patient was seen, as this information can be updated by other users. Medical History (Updated 09/10/22 @ 08:24 by Maritza Alvarado APRN) Abnormal Holter monitor finding Arthropathy of right hip Bronchiolitis Cardiac pacemaker Cardiac pacemaker in situ Cough Dizziness Lightheaded Near syncope PAC (premature atrial contraction) PAF (paroxysmal atrial fibrillation) PVC (premature ventricular contraction) Sick sinus syndrome Surgical History (Updated 09/10/22 @ 08:09 by Maritza Alvarado APRN) History of mitral valve repair History of right hip replacement Family History (Updated 09/10/22 @ 08:12 by Maritza Alvarado APRN) Coronary artery disease Cancer Social History (Updated 09/09/22 @ 23:06 by Kristie Valverde RN) Smoking Status: Never smoker alcohol intake: never substance use type: denies use current occupational status: employed Travel in the last 8 weeks: None household members: other current occupation: gl accountant caffeine: No Meds Home Medications and Allergies Home Medications Medication Instructions Recorded Confirmed Type aspirin 81 mg tablet,delayed 81 mg PO DAILY . 03/13/18 09/09/22 History release (Adult Low Dose Aspirin) cholecalciferol (vitamin D3) 50 2,000 unit PO DAILY Supplement 03/13/18 09/09/22 History mcg (2,000 unit) capsule vitamin B complex (B 1 tab PO DAILY Supplement 03/13/18 09/09/22 History Complex-Vitamin B12 tablet) celecoxib 200 mg capsule 200 mg PO DAILY migraines 09/09/22 09/09/22 History diltiazem HCl 120 mg 120 mg PO DAILY afib 09/09/22 09/09/22 History capsule,extended release 24 hr oxycodone 5 mg tablet 5 mg PO NEEDED PRN Pain 09/09/22 09/09/22 History tizanidine 2 mg tablet 2 mg PO DAILY muscle spasms 09/09/22 09/09/22 History apixaban 2.5 mg tablet (Eliquis) 2.5 mg PO BID Atrial fibrillation 09/10/22 09/10/22 History fluticasone 100 mcg-salmeterol 50 1 inh inhalation BID Breathing 09/10/22 09/10/22 History mcg/dose blistr powdr for problems inhalation (Wixela Inhub) furosemide 20 mg tablet 20 mg PO Q48H Fluid 09/10/22 09/10/22 History metoprolol succinate 25 mg 25 mg PO DAILY High blood pressure 09/10/22 09/10/22 History tablet,extended release 24 hr tramadol 50 mg tablet 50 mg PO Q6H PRN Pain 09/10/22 09/10/22 History New Prescriptions to Start Prescriptions: Allergies Allergy/AdvReac Type Severity Reaction Status Date / Time No Known Allergies Allergy Verified 08/13/22 11:43 Exam (Inpt) Vital signs and Labs for Last 24 Hours: Temp Pulse Resp BP Pulse Ox 97.3 F L 76 20 136/54 L 100 09/10/22 02:05 09/10/22 02:05 09/10/22 02:05 09/10/22 02:05 09/10/22 02:05 Laboratory Results - last 24 hr 09/09/22 17:09: Stool Occult Blood Positive A 09/09/22 17:10: WBC 7.7, RBC 2.75 L, Hgb 8.0 L, Hct 26.2 L, MCV 95.2, MCH 29.2, MCHC 30.7 L, RDW 18.6 H, Plt Count 220, MPV 9.0, Neut % (Auto) 82.1 H, Lymph % (Auto) 12.3, [place] % (Auto) 4.6, Eos % (Auto) 0.6, Baso % (Auto) 0.3, Neut # (Auto) 6.4, Lymph # (Auto) 1.0, [place] # (Auto) 0.4, Eos # (Auto) 0.1, Baso # (Auto) 0.0 09/09/22 17:10: Sodium 138, Potassium 4.6, Chloride 109 H, Carbon Dioxide 20 L, Anion Gap 13.6, BUN 55 H, Creat
--- NOTE | 2022-09-10 08:02 | EXP.HP ---
History of Present Illness *Admission Date: 09/10/22 *History of present illness: Patient is an 86-year-old female from [place] followed by Dr. Valverde with history of mitral valve repair on [facility]. She has cardiac pacemaker. She also has a history of hypertension, hyperlipidemia, osteopenia,. She had a recent hip replacement in July of this year at [facility] and has been doing well postoperatively. She has had home physical therapy and is able to walk with and without her walker. A.m. of admission patient states she had sudden onset of diarrhea with a total of 3 episodes. She describes the stools as being dark and black. Thus she presented to the emergency department the afternoon of 09/09/2022 with complaints of dizziness, lightheadedness, and dark tarry stools. She was found to have hemoglobin of 8.0, BUN 55, creatinine 0.9. Baseline hemoglobin is 13. CT scan was performed which revealed no sites of active GI hemorrhage . She was admitted for inpatient management. She was transfused 1 unit with resultant hemoglobin of 8.5. Patient denies fever and nausea, vomiting, and abdominal pain. Also to note she has been taking a daily baby aspirin. CT scan results: IMPRESSION: 1. ? No sites of active GI hemorrhage are identified. Nuclear medicine tagged RBC GI bleeding study would allow more sensitive/specific assessment for active GI hemorrhage if clinically indicated. 2. ? Mild generalized colonic wall thickening with slight adjacent stranding, suspicious for colitis. No perforation or abscess. 3. ? Additional nonemergent findings detailed above. Patient states she has had additional black stools since admission. Her chief complaint this morning is that she cannot void. Nursing will assist her up to the bathroom to see if this helps. She denies nausea, chest pain, abdominal pain, and shortness of breath. She has been on iron in the past. This caused constipation and she does not take it currently. [facility] Disclaimer: The information contained in this section may have been updated after the patient was seen, as this information can be updated by other users. Medical History (Updated 09/10/22 @ 08:24 by Maritza Alvarado APRN) Abnormal Holter monitor finding Arthropathy of right hip Bronchiolitis Cardiac pacemaker Cardiac pacemaker in situ Cough Dizziness Lightheaded Near syncope PAC (premature atrial contraction) PAF (paroxysmal atrial fibrillation) PVC (premature ventricular contraction) Sick sinus syndrome Surgical History (Updated 09/10/22 @ 08:09 by Maritza Alvarado APRN) History of mitral valve repair History of right hip replacement Family History (Updated 09/10/22 @ 08:12 by Maritza Alvarado APRN) Coronary artery disease Cancer Social History (Updated 09/09/22 @ 23:06 by Kristie Valverde RN) Smoking Status: Never smoker alcohol intake: never substance use type: denies use current occupational status: employed Travel in the last 8 weeks: None household members: other current occupation: property staff accountant caffeine: No Review of Systems Constitutional Constitutional: Denies fever(s) and Denies frequent falls Eyes Eyes: Denies change in vision and Denies loss of vision ENT Ears, Nose, Mouth, and Throat: Denies disequilibrium, Reports dizziness, Denies otalgia, Denies sore throat and Reports vertigo *Cardiovascular Cardiovascular: Denies chest pain, Denies dyspnea and Denies leg edema *Respiratory Respiratory: Denies cough and Denies dyspnea *Gastrointestinal Gastrointestinal: Denies abdominal pain, Reports change in bowel habits, Reports change in stool character, Reports constipation, Denies dyspepsia, Reports melena, Denies nausea and Denies vomiting *Genitourinary Genitourinary: Reports urinary frequency (Concerned this a.m. because she needs to void and cannot.) *Musculoskeletal Musculoskeletal: Denies myalgias *Neurologic Neurologic: Denies convulsions, Denies disequilibrium, Reports diz
[2022-09-10 09:20] LABS: Microscopic, Urine URINE MICROSCOPIC (MICROSCOPIC)
[2022-09-10 09:33] LABS: Appearance,Urine CLEAR (Clear); Bilirubin,Urine Negative (Negative); Blood, Urine TRACE-I (Negative); Color,Urine YELLOW (Yellow); Glucose,Urine (UA) Negative (Negative); Ketones,Urine TRACE (Negative); Leukocyte Esterase,Urine Negative (Negative); Nitrate,Urine Negative (Negative); Protein,Urine Negative (Negative); Urobilinogen,Urine 0.2 EU/dl (0.2)
[2022-09-10 09:44] LABS: Bacteria,Urine 1+ /lpf; RBC,Urine Occasional #/hpf (0-3); Squamous Epithelial Cell,Urine Occasional #/hpf (0-5); WBC,Urine Occasional #/hpf (0-3)
--- NOTE | 2022-09-10 11:14 | EXP.ANES.CKL ---
[facility] Disclaimer: The information contained in this section may have been updated after the patient was seen, as this information can be updated by other users. Medical History (Updated 09/10/22 @ 08:24 by Maritza Alvarado APRN) Abnormal Holter monitor finding Arthropathy of right hip Bronchiolitis Cardiac pacemaker Cardiac pacemaker in situ Cough Dizziness Lightheaded Near syncope PAC (premature atrial contraction) PAF (paroxysmal atrial fibrillation) PVC (premature ventricular contraction) Sick sinus syndrome Surgical History (Updated 09/10/22 @ 08:09 by Maritza Alvarado APRN) History of mitral valve repair History of right hip replacement Family History (Updated 09/10/22 @ 08:12 by Maritza Alvarado APRN) Other Cancer Coronary artery disease Social History (Updated 09/09/22 @ 23:06 by Kristie Valverde RN) Smoking Status: Never smoker alcohol intake: never substance use type: denies use current occupational status: employed Travel in the last 8 weeks: None household members: other current occupation: accounts receivable accountant caffeine: No [facility] Anesthesia Checklist Patient Identification Patient Identification: Arm Band Structural Data Admitted From: Home Planned Operative Procedure/s: EGD Consent for Planned Operative Procedure(s) Verified: Yes Verified Documents: Surgical Consent and History and Physical NPO Status Verified Time NPO: 00:00 Additional verifications Anesthesia Reactions: No Hx Blood Transfusions: No Blood Transfusion Reaction: No Airway Assessment C-Spine Mobility Assessed: Yes TMJ Mobility Assessed: Yes Dentition: Good Dentition Neurological Assessment Level of Consciousness: Awake and Alert Anesthesia Plan Anesthesia Risk discussed: Yes Anesthesia Plan: Verified ASA Class: III Anesthesia Type: MAC
--- NOTE | 2022-09-10 11:34 | HMH.SCOPE ---
Procedure: Date: 09/10/22 Patient Date of :: 1935 Procedure Performed:: Esophagogastroduodenoscopy Indications:: Patient is an 86-year-old female from [place] followed by Dr. Valverde with history of mitral valve repair on [facility].? She has cardiac pacemaker.? She also has a history of hypertension, hyperlipidemia, osteopenia,.? She had a recent hip replacement in July of this year at [facility] and has been doing well postoperatively.? She has had home physical therapy and is able to walk with and without her walker.? A.m. of admission patient states she had sudden onset of diarrhea with a total of 3 episodes.? She describes the stools as being dark and black.? Thus she presented to the emergency department the afternoon of 09/09/2022 with complaints of dizziness, lightheadedness, and dark tarry stools.? She was found to have hemoglobin of 8.0, BUN 55, creatinine 0.9.? Baseline hemoglobin is 13.? CT scan was performed which revealed no sites of active GI hemorrhage .? She was admitted for inpatient management.? She was transfused 1 unit with resultant hemoglobin of 8.5.? Patient denies fever and nausea, vomiting, and abdominal pain.? Also to note she has been taking a daily baby aspirin. She is on celecoxib Performing Provider:: Sean Rider MD Referring Provider:: Fox Guerra MD Sedation:: MAC sedation Procedure:: Patient history was obtained and appropriate physical examination was performed. Patient's medications and allergies were reviewed. Informed consent was obtained after explaining the benefits, alternatives, and risks of the procedure including, but not limited to, bleeding, perforation, missed lesions, and adverse reaction to anesthesia medications. Patient was transported to endoscopy procedure room. Patient was connected to monitoring devices. Throughout the procedure the patient's blood pressure, pulse, and oxygen saturations were monitored continuously. Patient identification and planned procedure were verified by the staff. Patient was positioned in lateral decubitus position. Olympus endoscope was inserted via the oropharynx. There is some cricopharyngeal narrowing and spasm. Esophagus appeared normal. Gastroesophageal junction was encountered at 35 cm. Stomach was cannulated and insufflated. Retroflexion revealed a small hiatal hernia. In the antrum of the stomach there were multiple small erosions and a couple of punctate ulcerations. No evidence of active bleeding. No stigmata of recent bleeding. Pylorus was traversed. Duodenal bulb and duodenal sweep appeared unremarkable. Endoscope was withdrawn. Findings:: Cricopharyngeal narrowing/spasm Gastroesophageal junction at 35 cm Multiple gastric antral erosions and a couple of punctate ulcerations without stigmata of recent bleeding Recommendations:: Patient's clinical scenario has been consistent with upper GI bleed. It is possible that she has had bleeding from the's small gastric antral ulcers. No stigmata of recent bleeding at this time. Recommend expectant medical management. Would not pursue immediate inpatient colonoscopy. Complications:: None immediate Estimated blood obtained (mL): 0 Colonoscopy Component Colonoscopy Component Was a colonoscopy performed during today's procedure?: No
[2022-09-11] VITALS: PULSE 60
[2022-09-11 04:00] VITALS: BP 111/52; PULSE 72; PULSE 80; RESP 16; TEMP 36.7; O2SAT 94; BMI 21.7
--- NOTE | 2022-09-11 05:29 | PC.NURSE ---
Pt has not voiced any c/o t/o night. No BMs noted. VSS. Call light within reach.
[2022-09-11 06:22] LABS: Basophils % 0.3 % (0.1-2.0); Eosinophils # 0.3 K/mm3 (0.0-0.4); Hematocrit 25.9 % (37.0-47.0); Lymphocytes # 1.2 K/mm3 (0.7-4.5); Lymphocytes % 25.4 % (10-50); Mean Corpuscular Hemoglobin 29.8 pg (27.0-31.2); Mean Corpuscular Volume 96.1 fl (81-99); Mean Platelet Volume 9.1 fl (7.4-10.4); Monocytes # 0.4 K/mm3 (0.1-1.0); Monocytes % 8.6 % (1.7-9.3); Neutrophils # 2.9 K/mm3 (1.8-7.8); Neutrophils % 59.7 % (37.0-80.0); Platelet Count 142 K/mm3 (142-424); Red Cell Distribution Width 18.2 % (11.5-17.5); White Blood Count 4.8 K/mm3 (4.8-10.8)
[2022-09-11 06:35] LABS: Anion Gap 9.8 mEq/L (5-15); Blood Urea Nitrogen 13 mg/dl (7-17); Calcium 7.8 mg/dl (8.4-10.2); Carbon Dioxide 21 mmol/L (22.0-30.0); Chloride 112 mmol/L (98-107); Creatinine Clearance Estimated 30 mL/min (50-200); Estimated Glomerular Filt Rate 79 ml/min (>60); GFR (African American) 96 ML/MIN (>60); Glucose 69 mg/dl (74-100); Potassium 3.8 mmoL/L (3.5-5.1); Sodium 139 mmol/L (136-145)
--- NOTE | 2022-09-11 07:47 | EXP.ACUTE.PN ---
Subjective *Date: 09/11/22 *Time: 08:08 Interval history: States she is just tired and wants to sleep. She did sleep during the night but not the night before. She has been up in the room without problems. She has not had breakfast this morning but plans to eat. She denies any pain, nausea, or further diarrhea. She also denies chest pain and shortness of breath. H&H is 8/25.9. Patient states that she has been voiding without difficulty Patient did have the EGD yesterday per Dr. Rider showing Multiple gastric antral erosions and a couple of punctate ulcerations without any noted recent bleeding. Medical Exam Vital signs and Labs for Last 24 Hours: Vital Signs Temp Pulse Pulse Pulse Resp BP Pulse Ox 09/11/22 04:00 98.1 F 72 16 111/52 L 94 L 09/11/22 00:00 60 09/10/22 20:00 70 09/10/22 23:58 98.4 F 72 16 115/53 L 99 09/10/22 20:00 97.7 F 58 L 16 126/57 L 90 L 09/10/22 16:05 98.7 F 70 17 135/69 100 09/10/22 15:05 66 17 134/71 99 09/10/22 14:05 73 16 137/65 100 09/10/22 13:35 72 17 134/60 100 09/10/22 13:05 71 17 141/69 H 100 09/10/22 16:00 69 09/10/22 12:16 73 09/10/22 13:35 72 17 134/60 100 09/10/22 13:05 71 17 141/69 H 100 09/10/22 08:00 95 H 09/10/22 12:50 98.2 F 16 145/54 H 100 09/10/22 12:35 97.7 F 72 17 137/64 99 09/10/22 12:03 98.1 F 73 16 136/59 L 100 09/10/22 11:55 98.1 F 71 16 125/69 100 09/10/22 11:45 70 16 125/61 100 09/10/22 11:35 98.0 F 70 16 119/59 L 99 09/10/22 12:20 97.7 F 75 16 145/70 H 100 09/10/22 12:05 97.8 F 70 16 118/62 100 09/10/22 08:00 100 09/10/22 08:00 97.7 F 80 18 154/61 H 100 Intake and Output 09/10/22 09/11/22 09/11/22 19:59 03:59 11:59 Intake Total 600 / 600 501 / 1101 Output Total 100 / 100 0 / 100 0 / 100 Balance 500 / 500 501 / 1001 0 / 1001 Intake: Intake, Oral Amount 600 / 600 Intake, Total IV Amount 501 / 501 Pantoprazole Sodium 80 mg In 0. 501 / 501 9 % Sodium Chloride 100 ml @ 10 mls/hr IV .Q10H [facility] Rx#: [id number] Output: Output, Urine Amount 100 / 100 0 / 100 0 / 100 Other: Number of Unmeasured Voids 1 1 1 Number of Bowel Movements 1 Weight 107 lb 6.4 oz Patient Weight 09/11/22 11:59 Weight 107 lb 6.4 oz Laboratory Results - last 24 hr 09/09/22 19:50: Urine Color Yellow, Urine Appearance Clear, Urine pH 6.0, Ur Specific [place] 1.020, Urine Protein Negative, Urine Glucose (UA) Negative, Urine Ketones Trace, Urine Blood Trace-i, Urine Nitrate Negative, Urine Bilirubin Negative, Urine Urobilinogen 0.2, Ur Leukocyte Esterase Negative, Urine RBC Occasional, Urine WBC Occasional, Ur Squamous Epith Cells Occasional, Urine Bacteria 1+ 09/11/22 05:45: WBC 4.8 D, RBC 2.70 L, Hgb 8.0 L, Hct 25.9 L, MCV 96.1, MCH 29.8, MCHC 31.0 L, RDW 18.2 H, Plt Count 142 D, MPV 9.1, Neut % (Auto) 59.7, Lymph % (Auto) 25.4, [place] % (Auto) 8.6, Eos % (Auto) 6.0, Baso % (Auto) 0.3, Neut # (Auto) 2.9, Lymph # (Auto) 1.2, [place] # (Auto) 0.4, Eos # (Auto) 0.3, Baso # (Auto) 0.0 09/11/22 05:45: Sodium 139, Potassium 3.8, Chloride 112 H, Carbon Dioxide 21 L, Anion Gap 9.8, BUN 13 D, Creatinine 0.70 D, Estimated Creat Clear 30, Estimated GFR 79, Est GFR ( Amer) 96 D, Glucose 69 L, Calcium 7.8 L I & O for Labs for Last 24 Hours: Intake & Output 09/08/22 09/09/22 09/10/22 09/11/22 11:59 11:59 11:59 11:59 Intake Total 250 / 250 1101 / 1101 Output Total 501 / 501 100 / 100 Balance -251 / -251 1001 / 1001 Weight 107 lb 4 oz 107 lb 6.4 oz Constitutional: Present no acute distress Respiratory: Present CTA bilaterally (Anteriorly and posteriorly) Cardiac: Present Regular Rate GI: Present soft and normal bowel sounds; Absent distention or tenderness Extremities: Absent tenderness, edema or calf tenderness Neuro: Present alert and oriente
[2022-09-11 08:00] VITALS: BP 125/61; PULSE 60; PULSE 66; RESP 17; TEMP 36.6; O2SAT 98
--- NOTE | 2022-09-11 08:56 | P.PN_ITS ---
Subjective Narrative: Patient states that she rested well last night. No additional melanic stools. Tolerating diet. Exam Data for Last 24 hours Vital signs and Labs for Last 24 Hours: Temp Pulse Resp BP Pulse Ox 97.9 F 66 17 125/61 98 09/11/22 08:00 09/11/22 08:00 09/11/22 08:00 09/11/22 08:00 09/11/22 08:00 Laboratory Results - last 24 hr 09/09/22 19:50: Urine Color Yellow, Urine Appearance Clear, Urine pH 6.0, Ur Specific [place] 1.020, Urine Protein Negative, Urine Glucose (UA) Negative, Urine Ketones Trace, Urine Blood Trace-i, Urine Nitrate Negative, Urine Bilirubin Negative, Urine Urobilinogen 0.2, Ur Leukocyte Esterase Negative, Urine RBC Occasional, Urine WBC Occasional, Ur Squamous Epith Cells Occasional, Urine Bacteria 1+ 09/11/22 05:45: WBC 4.8 D, RBC 2.70 L, Hgb 8.0 L, Hct 25.9 L, MCV 96.1, MCH 29.8, MCHC 31.0 L, RDW 18.2 H, Plt Count 142 D, MPV 9.1, Neut % (Auto) 59.7, Lymph % (Auto) 25.4, [place] % (Auto) 8.6, Eos % (Auto) 6.0, Baso % (Auto) 0.3, [place] # (Auto) 2.9, Lymph # (Auto) 1.2, [place] # (Auto) 0.4, Eos # (Auto) 0.3, Baso # (Auto) 0.0 09/11/22 05:45: Sodium 139, Potassium 3.8, Chloride 112 H, Carbon Dioxide 21 L, Anion Gap 9.8, BUN 13 D, Creatinine 0.70 D, Estimated Creat Clear 30, Estimated GFR 79, Est GFR ( Amer) 96 D, Glucose 69 L, Calcium 7.8 L I & O for Last 24 hours: Intake & Output 09/08/22 09/09/22 09/10/22 09/11/22 11:59 11:59 11:59 11:59 Intake Total 250 / 250 1341 / 1341 Output Total 501 / 501 100 / 100 Balance -251 / -251 1241 / 1241 Weight 107 lb 4 oz 107 lb 6.4 oz *Routine Abdominal Exam Abdominal: Present soft Progress Note: A&P Assessment and plan (1) Gastrointestinal bleed: Status: Acute Assessment and plan: Hemoglobin 8.0 on admission. Posttransfusion 8.5. Hemoglobin 8 today. Endoscopy yesterday revealed a couple of small ulcerations and multiple erosions in the antrum without stigmata of recent bleeding. Would plan to reassess hemoglobin for stability prior to consideration of discharge. (2) Anemia: Status: Acute (3) Dizziness: Status: Acute (4) Status post right hip replacement: Status: Acute (5) History of mitral valve repair: Status: Chronic (6) Cardiac pacemaker in situ: Status: Chronic (7) PAF (paroxysmal atrial fibrillation): Status: Chronic (8) HTN (hypertension): Status: Chronic
[2022-09-11 11:14] VITALS: BP 107/66; PULSE 75; RESP 18; TEMP 36.9; O2SAT 97
[2022-09-11 12:00] VITALS: PULSE 89
[2022-09-11 13:22] VITALS: BMI 21.6
[2022-09-11 14:15] LABS: Hematocrit 28.5 % (37.0-47.0)
[2022-09-11 14:51] LABS: Hemoglobin 8.9 g/dL (12.2-16.2)
[2022-09-11 15:23] VITALS: BP 99/61; PULSE 69; RESP 17; TEMP 36.9; O2SAT 99
--- NOTE | 2022-09-11 16:08 | HMH.PHAINT1 ---
Pharmacy Intervention Comments: Discharge medication counseling completed. Patient was starting the following new meds: -ferrous sulfate: 325 twice daily. Told patient this could potentially cause some constipation and/or darkened stools. Explained the difference between darker stools vs evidence of bleeded (coffee-ground appearance, black tarry). Said it was best taken on an empty stomach. -pantoprazole: 40 mg twice daily. Said this was best to take a couple of hours apart from the iron. Patient was told to hold her Eliquis until after seeing her physician on Friday and to stop taking her aspirin. Patient and son verbalized understanding and had no further questions.
--- NOTE | 2022-09-12 14:33 | CARE MANAGER ---
Contacted patient related to hospital discharge. She states that she is getting her meds today. She is feeling about the same and is aware of her follow up appointments. Denies questions or concerns. RHONDA Richards
--- NOTE | 2022-09-16 18:34 | EXP.DC.SUM ---
General Admission date:: 09/09/22 Discharge date: 09/11/22 HPI HPI HPI: Patient is an 86-year-old female from [place] followed by Dr. Valverde with history of mitral valve repair on [facility]. She has cardiac pacemaker. She also has a history of hypertension, hyperlipidemia, osteopenia,. She had a recent hip replacement in July of this year at [facility] and has been doing well postoperatively. She has had home physical therapy and is able to walk with and without her walker. A.m. of admission patient states she had sudden onset of diarrhea with a total of 3 episodes. She describes the stools as being dark and black. Thus she presented to the emergency department the afternoon of 09/09/2022 with complaints of dizziness, lightheadedness, and dark tarry stools. She was found to have hemoglobin of 8.0, BUN 55, creatinine 0.9. Baseline hemoglobin is 13. CT scan was performed which revealed no sites of active GI hemorrhage . She was admitted for inpatient management. She was transfused 1 unit with resultant hemoglobin of 8.5. Patient denies fever and nausea, vomiting, and abdominal pain. Also to note she has been taking a daily baby aspirin. CT scan results: IMPRESSION: 1. ? No sites of active GI hemorrhage are identified. Nuclear medicine tagged RBC GI bleeding study would allow more sensitive/specific assessment for active GI hemorrhage if clinically indicated. 2. ? Mild generalized colonic wall thickening with slight adjacent stranding, suspicious for colitis. No perforation or abscess. 3. ? Additional nonemergent findings detailed above. Patient states she has had additional black stools since admission. Her chief complaint this morning is that she cannot void. Nursing will assist her up to the bathroom to see if this helps. She denies nausea, chest pain, abdominal pain, and shortness of breath. She has been on iron in the past. This caused constipation and she does not take it currently. Hospital Course Hospital Course Hospital Course: Patient was seen by Dr. Rider on admission. He performed an EGD on 09/10/2022 with findings and plan as follows: Findings:: Cricopharyngeal narrowing/spasm Gastroesophageal junction at 35 cm Multiple gastric antral erosions and a couple of punctate ulcerations without stigmata of recent bleeding Recommendations:: Patient's clinical scenario has been consistent with upper GI bleed.? It is possible that she has had bleeding from the's small gastric antral ulcers.? No stigmata of recent bleeding at this time.? Recommend expectant medical management.? Would not pursue immediate inpatient colonoscopy. On 11/11 patient complained of being tired. H&H was 11/22.9. She was Voiding without difficulty at this point. She denied any nausea or further diarrhea. Diet was advanced and tolerated. She was seen by Dr. Rider who felt she could be managed medically. She had had no further melenic stools. Dr. Guerra did see her in the p.m. and discharged her home. Follow-up was to be with Dr. Valverde and Dr. Rider. Medications as per med medication reconciliation sheet Exam Data for Last 24 hours Vital signs and Labs for Last 24 Hours: Temp Pulse Resp BP Pulse Ox 98.5 F 69 17 99/61 L 99 09/11/22 15:23 09/11/22 15:23 09/11/22 15:23 09/11/22 15:23 09/11/22 15:23 Narrative: Medical Exam Vital signs and Labs for Last 24 Hours: Vital Signs ? Temp Pulse Pulse Pulse Resp BP Pulse Ox ?09/11/22 04:00 ?98.1 F ? ? ?72 ?16 ?111/52 L ?94 L ?09/11/22 00:00 ? ?60 ?09/10/22 20:00 ? ?70 ?09/10/22 23:58 ?98.4 F ? ? ?72 ?16 ?115/53 L ?99 ?09/10/22 20:00 ?97.7 F ? ? ?58 L ?16 ?126/57 L ?90 L ?09/10/22 16:05 ?98.7 F ? ? ?70 ?17 ?135/69 ?100 ?09/10/22 15:05 ?66 ?17 ?134/71 ?99 ?09/10/22 14:05 ?73 ?16 ?137/65 ?100 ?09/10/22 13:35 ?72 ?17 ?134/60 ?100 ?09/10/22 13:05 ?71 ?17 ?141/69 H ?100 ?09/10/22 16:00 ? ?69 ?09/10/22 12:16 ? ?73 ?09/10/22 13
== END 2022-09-11 16:40 | disposition home or self-care (01) | DRG 379 ==
LOC: ER 17:54 → 2ND 18:51
PROVIDERS: Nurse Practitioner Family; Surgery; Admitting Provider Family Medicine; Emergency Provider Emergency Medicine; PCP Family Medicine; Visit Provider Family Medicine
PROC: 0DJ08ZZ Inspection of Upper Intestinal Tract, Via Natural or Artificial Opening Endoscopic (ICD-10-PCS; CPT 43235; principal; 2022-09-10 11:00)
DX: K25.4 Chronic or unspecified gastric ulcer with hemorrhage (principal); D64.9 Anemia, unspecified; Z96.641 Presence of right artificial hip joint; Z95.0 Presence of cardiac pacemaker; I48.0 Paroxysmal atrial fibrillation; I10 Essential (primary) hypertension; K44.9 Diaphragmatic hernia without obstruction or gangrene; Z79.01 Long term (current) use of anticoagulants
CPT/HCPCS: 43235; 36415; 74177; 80048; 80053; 81001; 82272; 84484; 85014; 85018; 85025; 86850; 87636; 93005; 99291; C9803; G0328; G0378; P9016; Q9967; U0003; U0005

== ENCOUNTER → 2022-09-14 09:08 | Outpatient (CLI) | payer MEDICARE, SELFPAY ==
[2022-09-13 17:54] LABS: Basophils % 0.1 % (0.1-2.0); Eosinophils # 0.3 K/mm3 (0.0-0.4); Eosinophils % 5.3 % (0.1-12.0); Hematocrit 29.6 % (37.0-47.0); Hemoglobin 9.3 g/dL (12.2-16.2); Lymphocytes # 1.3 K/mm3 (0.7-4.5); Lymphocytes % 21.4 % (10-50); Mean Corpuscular HGB Conc 31.5 g/dL (31.8-35.4); Mean Corpuscular Hemoglobin 30.1 pg (27.0-31.2); Mean Corpuscular Volume 95.4 fl (81-99); Mean Platelet Volume 11.9 fl (7.4-10.4); Monocytes # 0.4 K/mm3 (0.1-1.0); Monocytes % 6.6 % (1.7-9.3); Neutrophils % 66.6 % (37.0-80.0); Platelet Count 193 K/mm3 (142-424); White Blood Count 6.1 K/mm3 (4.8-10.8)
[2022-09-13 17:56] LABS: Chloride 101 mmol/L (98-107); Potassium 4.1 mmoL/L (3.5-5.1); Sodium 133 mmol/L (136-145)
[2022-09-13 17:59] LABS: Anion Gap 13.1 mEq/L (5-15); Blood Urea Nitrogen 13 mg/dl (7-17); Calcium 8.9 mg/dl (8.4-10.2); Carbon Dioxide 23 mmol/L (22.0-30.0); Estimated Glomerular Filt Rate 47 ml/min (>60); GFR (African American) 57 ML/MIN (>60); Glucose 79 mg/dl (74-100)
== END ==
PROVIDERS: PCP Family Medicine; Visit Provider Family Medicine
DX: I49.1 Atrial premature depolarization (principal); I10 Essential (primary) hypertension
CPT/HCPCS: 80048; 85025

== ENCOUNTER → 2022-10-11 11:00 | Outpatient (CLI) | payer MEDICARE, SELFPAY ==
[2022-10-11 18:14] LABS: Basophils % 0.3 % (0.1-2.0); Eosinophils # 0.4 K/mm3 (0.0-0.4); Eosinophils % 6.2 % (0.1-12.0); Hematocrit 38.5 % (37.0-47.0); Hemoglobin 11.7 g/dL (12.2-16.2); Lymphocytes # 1.3 K/mm3 (0.7-4.5); Lymphocytes % 20.2 % (10-50); Mean Corpuscular HGB Conc 30.4 g/dL (31.8-35.4); Mean Corpuscular Hemoglobin 29.9 pg (27.0-31.2); Mean Corpuscular Volume 98.3 fl (81-99); Mean Platelet Volume 12.6 fl (7.4-10.4); Monocytes # 0.5 K/mm3 (0.1-1.0); Monocytes % 7.9 % (1.7-9.3); Neutrophils # 4.1 K/mm3 (1.8-7.8); Neutrophils % 65.3 % (37.0-80.0); Platelet Count 225 K/mm3 (142-424); Red Blood Count 3.92 M/mm3 (4.20-5.40); Red Cell Distribution Width 15.9 % (11.5-17.5); White Blood Count 6.2 K/mm3 (4.8-10.8)
== END ==
PROVIDERS: PCP Family Medicine; Visit Provider Family Medicine
DX: Z96.641 Presence of right artificial hip joint (principal); M25.551 Pain in right hip
CPT/HCPCS: 85025

== ENCOUNTER 2022-11-01 11:32 | Day surgery (SDC) | payer MEDICARE, SELFPAY ==
[2022-10-29 13:16] VITALS: BMI 19.3
[2022-11-01] VITALS (8 sets, daily range): BP systolic 99–132; BP diastolic 48–68; PULSE 58–82; RESP 14–18; TEMP 36.1–36.6; O2SAT 93–99
--- NOTE | 2022-11-01 11:39 | P.PNANES_ITS ---
[facility] Disclaimer: The information contained in this section may have been updated after the patient was seen, as this information can be updated by other users. Medical History Abnormal Holter monitor finding Arthropathy of right hip Bronchiolitis Cardiac pacemaker Cardiac pacemaker in situ Cough Dizziness History of pacemaker HTN (hypertension) Lightheaded Near syncope Orthostatic hypotension Osteoarthritis of right hip PAC (premature atrial contraction) PAF (paroxysmal atrial fibrillation) PVC (premature ventricular contraction) Sick sinus syndrome Surgical History History of esophagogastroduodenoscopy (EGD) History of mitral valve repair History of right hip replacement Status post right hip replacement Family History Other Cancer Coronary artery disease Social History Smoking Status: Never smoker alcohol intake: never substance use type: denies use current occupational status: employed Travel in the last 8 weeks: None household members: other current occupation: sec accountant caffeine: No [employer] Anesthesia Checklist Patient Identification Patient Identification: Arm Band and Verbal (Name & ) Structural Data Admitted From: Home Planned Operative Procedure/s: EGD Consent for Planned Operative Procedure(s) Verified: Yes NPO Status Verified Time NPO: 00:00 Additional verifications Anesthesia Reactions: No Hx Blood Transfusions: No Blood Transfusion Reaction: No Airway Assessment Mallampati Score:: Class I C-Spine Mobility Assessed: Yes TMJ Mobility Assessed: Yes Dentition: Good Dentition Neurological Assessment Level of Consciousness: Awake Hx Seizures: No Numbness or tingling in extremities: No Anesthesia Plan Anesthesia Risk discussed: Yes Anesthesia Plan: Verified ASA Class: III Anesthesia Type: MAC
--- NOTE | 2022-11-01 12:05 | EXP.GEN.HP ---
HPI HPI HPI: Patient presents for follow-up endoscopy. She was hospitalized 09/09/2022 until 09/12/2022 for symptoms of melena and anemia. At that time she was admitted to [facility]. She has a history of cardiac pacemaker. Her hemoglobin on admission was 8.0 with a BUN of 55 and a creatinine of 0.9. Baseline hemoglobin is 13. However, the patient had undergone hip replacement in July in [facility]. Patient is on Eliquis for history of mitral valve repair. Upper endoscopy performed on 09/10/2022 revealed cricopharyngeal spasm, gastroesophageal junction at 35 cm, multiple gastric antral erosions with a couple of punctate antral ulcerations. Patient was discharged home. She has been on Protonix. She has had black stools but is now on iron. Plan was for follow-up endoscopy after course of medical therapy. [facility] Disclaimer: The information contained in this section may have been updated after the patient was seen, as this information can be updated by other users. Medical History Abnormal Holter monitor finding Arthropathy of right hip Bronchiolitis Cardiac pacemaker Cardiac pacemaker in situ Cough Dizziness History of pacemaker HTN (hypertension) Lightheaded Near syncope Orthostatic hypotension Osteoarthritis of right hip PAC (premature atrial contraction) PAF (paroxysmal atrial fibrillation) PVC (premature ventricular contraction) Sick sinus syndrome Surgical History History of esophagogastroduodenoscopy (EGD) History of mitral valve repair History of right hip replacement Status post right hip replacement Family History Other Cancer Coronary artery disease Social History Smoking Status: Never smoker alcohol intake: never substance use type: denies use current occupational status: employed Travel in the last 8 weeks: None household members: other current occupation: budget accountant caffeine: No Review of Systems Review of Systems Review of systems:: pertinent systems reviewed and negative unless documented below Meds Home Medications and Allergies Home Medications Medication Instructions Recorded Confirmed Type cholecalciferol (vitamin D3) 50 2,000 unit PO DAILY Supplement 03/13/18 11/01/22 History mcg (2,000 unit) capsule vitamin B complex (B 1 tab PO DAILY Supplement 03/13/18 11/01/22 History Complex-Vitamin B12 tablet) metoprolol succinate 25 mg 25 mg PO DAILY High blood pressure 09/10/22 11/01/22 History tablet,extended release 24 hr diltiazem HCl 120 mg 120 mg PO DAILY High blood 09/18/22 11/01/22 Rx capsule,extended release 24 hr pressure #90 caps aspirin 81 mg tablet,delayed 81 mg PO DAILY Blood Thinner 10/29/22 11/01/22 History release (Adult Low Dose Aspirin) New Prescriptions to Start Prescriptions: Allergies Allergy/AdvReac Type Severity Reaction Status Date / Time No Known Allergies Allergy Verified 11/01/22 11:49 Exam Data for Last 24 hours Vital signs and Labs for Last 24 Hours: Temp Pulse Resp BP Pulse Ox O2 Del Method 97.0 F L 58 L 17 132/65 99 Room Air 11/01/22 11:51 11/01/22 11:51 11/01/22 11:51 11/01/22 11:51 11/01/22 11:51 11/01/22 11:51 I & O for Last 24 hours: Intake & Output 10/30/22 10/31/22 11/01/22 11/02/22 11:59 11:59 11:59 11:59 Weight 102 lb Constitutional Constitutional: no acute distress *Routine HEENT Exam Head: Present normocephalic Eye: Present EOMI and PERRL ENT: Present mucous membranes moist *Routine Neck Exam Neck: Present supple; Absent lymphadenopathy *Routine Respiratory Exam Respiratory: Present CTA bilaterally *Routine Cardiovascular Exam Cardiovascular: Present RRR *Routine Abdominal Exam Abdominal: Present soft and normoactive
--- NOTE | 2022-11-01 12:33 | P.PCN_ITS ---
Procedure: Date: 11/01/22 Patient Date of :: 1935 Procedure Performed:: Esophagogastroduodenoscopy with biopsies and dilatation Schatzki's ring to 19 mm Indications:: Patient presents for follow-up endoscopy. She was hospitalized 09/09/2022 until 09/12/2022 for symptoms of melena and anemia. At that time she was admitted to [facility]. She has a history of cardiac pacemaker. Her hemoglobin on admission was 8.0 with a BUN of 55 and a creatinine of 0.9. Baseline hemoglobin is 13. However, the patient had undergone hip replacement in July in [facility]. Patient is on Eliquis for history of mitral valve repair. Upper endoscopy performed on 09/10/2022 revealed cricopharyngeal spasm, gastroesophageal junction at 35 cm, multiple gastric antral erosions with a couple of punctate antral ulcerations. Patient was discharged home. She has been on Protonix. She has had black stools but is now on iron. Plan was for follow-up endoscopy after course of medical therapy. Performing Provider:: Sean Rider MD Referring Provider:: Jono Valverde MD Sedation:: MAC sedation Procedure:: Patient history was obtained and appropriate physical examination was performed. Patient's medications and allergies were reviewed. Informed consent was obtained after explaining the benefits, alternatives, and risks of the procedure including, but not limited to, bleeding, perforation, missed lesions, and adverse reaction to anesthesia medications. Patient was transported to endoscopy procedure room. Patient was connected to monitoring devices. Throughout the procedure the patient's blood pressure, pulse, and oxygen saturations were monitored continuously. Patient identification and planned procedure were verified by the staff. Patient was positioned in lateral decubitus position. Olympus endoscope was inserted via the oropharynx. There was some cricopharyngeal spasm. Esophagus was cannulated. There were findings consistent with esophageal dysmotility. Gastroesophageal junction was encountered at approximately 35 cm. There were findings of nonobstructing Schatzki's ring with some prominent mucosa. Stomach was cannulated and insufflated. Retroflexion revealed a small, approximately 3 to 4 cm, sliding hiatal hernia. There is diffuse moderate nonerosive gastropathy. There was no evidence of any ulcerations. Gastric biopsies were obtained. Pylorus was traversed. Duodenum overall appeared relatively unremarkable other than some very mild nonerosive duodenitis. Biopsies were obtained. Endoscope was withdrawn into the distal esophagus and multiple biopsies were obtained of the benign-appearing Schatzki's ring. To prevent dysphagia and also to ensure hemostasis this dilated sequentially from 18 to 19 mm using the elation balloon dilator. There was good hemostasis. Stomach was desufflated and the scope was withdrawn. Findings:: Cricopharyngeal spasm Esophageal dysmotility Gastroesophageal junction at 35 cm Schatzki's ring Small 3 to 4 cm sliding hiatal hernia Moderate nonerosive diffuse gastropathy Mild nonerosive gastritis Recommendations:: Continue medical therapy. Plan to follow-up on biopsies and manage as indicated Complications:: None immediately apparent Estimated blood obtained (mL): 3 Colonoscopy Component Colonoscopy Component Was a colonoscopy performed during today's procedure?: No
--- NOTE | 2022-11-01 12:35 | PC.NURSE ---
Pt to post op w/ oral airway. Tolerating room air at this time.
== END 2022-11-01 13:25 | disposition home or self-care (01) ==
PROVIDERS: PCP Family Medicine; Visit Provider Surgery
PROC: 0DJ08ZZ Inspection of Upper Intestinal Tract, Via Natural or Artificial Opening Endoscopic (ICD-10-PCS; CPT 43235; principal; 2022-11-01 12:30)
DX: K25.9 Gastric ulcer, unspecified as acute or chronic, without hemorrhage or perforation (principal); J38.5 Laryngeal spasm; K22.4 Dyskinesia of esophagus; K22.2 Esophageal obstruction; K44.9 Diaphragmatic hernia without obstruction or gangrene; K31.9 Disease of stomach and duodenum, unspecified; K29.70 Gastritis, unspecified, without bleeding
CPT/HCPCS: 43239; 43249; 88305; 88312; C1726

== ENCOUNTER → 2022-11-26 21:09 | Outpatient (CLI) | payer MEDICARE, SELFPAY ==
[2022-11-26 22:18] LABS: Anion Gap 13.3 mEq/L (5-15); Blood Urea Nitrogen 15 mg/dl (7-17); Calcium 9.2 mg/dl (8.4-10.2); Carbon Dioxide 27 mmol/L (22.0-30.0); Chloride 106 mmol/L (98-107); Estimated Glomerular Filt Rate 59 ml/min (>60); GFR (African American) 72 ML/MIN (>60); Glucose 83 mg/dl (74-100); Potassium 4.3 mmoL/L (3.5-5.1); Sodium 142 mmol/L (136-145)
[2022-11-26 22:27] LABS: Basophils % 0.6 % (0.1-2.0); Eosinophils # 0.3 K/mm3 (0.0-0.4); Eosinophils % 3.8 % (0.1-12.0); Hematocrit 41.5 % (37.0-47.0); Lymphocytes # 1.6 K/mm3 (0.7-4.5); Lymphocytes % 23.6 % (10-50); Mean Corpuscular HGB Conc 31.3 g/dL (31.8-35.4); Mean Corpuscular Hemoglobin 29.9 pg (27.0-31.2); Mean Corpuscular Volume 95.5 fl (81-99); Mean Platelet Volume 14.4 fl (7.4-10.4); Monocytes # 0.6 K/mm3 (0.1-1.0); Monocytes % 8.6 % (1.7-9.3); Neutrophils # 4.3 K/mm3 (1.8-7.8); Neutrophils % 63.4 % (37.0-80.0); Platelet Count 222 K/mm3 (142-424); Red Blood Count 4.35 M/mm3 (4.20-5.40); Red Cell Distribution Width 13.7 % (11.5-17.5); White Blood Count 6.8 K/mm3 (4.8-10.8)
== END ==
PROVIDERS: PCP Family Medicine; Visit Provider Family Medicine
DX: Z96.641 Presence of right artificial hip joint (principal); M25.551 Pain in right hip
CPT/HCPCS: 80048; 85025

== ENCOUNTER 2023-04-22 22:02 | Outpatient (CLI) | payer MEDICARE, SELFPAY ==
[2023-04-22 18:50] LABS: Chloride 104 mmol/L (98-107); Potassium 4.2 mmoL/L (3.5-5.1); Sodium 139 mmol/L (136-145)
[2023-04-22 18:52] LABS: Alanine Aminotransferase 15 U/L (12-78); Alkaline Phosphatase 62 U/L (38-126); Aspartate Amino Transferase 29 U/L (14-36); Bilirubin,Total 0.4 mg/dl (0.2-1.3); Blood Urea Nitrogen 17 mg/dl (7-17); Estimated Glomerular Filt Rate 52 ml/min (>60); GFR (African American) 63 ML/MIN (>60)
[2023-04-22 18:53] LABS: Albumin Level 3.6 g/dl (3.5-5.0); Albumin/Globulin Ratio 1.3 (1.1-1.8); Anion Gap 12.2 mEq/L (5-15); Calcium 9.3 mg/dl (8.4-10.2); Carbon Dioxide 27 mmol/L (22.0-30.0); Globulin 2.8 g/dL (1.3-3.2); Glucose 132 mg/dl (74-100); Total Protein,Serum 6.4 g/dl (6.3-8.2)
[2023-04-22 19:24] LABS: Thyroid Stimulating Hormone 1.45 uIU/mL (0.465-4.68)
== END 2023-04-22 23:59 ==
LOC: LAB.DROPOF 22:03
PROVIDERS: PCP Family Medicine; Visit Provider Family Medicine
DX: R53.1 Weakness (principal); I49.9 Cardiac arrhythmia, unspecified
CPT/HCPCS: 80053; 84443

== ENCOUNTER 2023-07-17 12:26 | Outpatient (CLI) | payer MEDICARE, SELFPAY ==
--- NOTE | 2023-07-17 12:26 | CA_ITS ---
APPROVED REPORT EXAM: Comprehensive 2D, Doppler, and color-flow Echocardiogram [employer]ocom[employer]ilermaker: Tricia Vela RDCS Ht: 5 ft 0 in Wt: 101lbs BSA: 1.40 BP: 136/93 mmHg Indications: PP,SOA,HTN,PAF, MV annuloplasty ring M-Mode Dimensions RVDd 1.65 cm (0.9-2.6) LA Diam 4.16 cm (1.9-4.0) LVDd 4.62 cm (3.5-5.7) LVDs 3.30 cm (3.5-5.7) IVSd 0.77 cm (0.6-1.1) PWd 0.54 cm (0.6-1.1) EF (Teich) 55.10% FS 28.60% EDV (Teich) 98.30 mL ESV (Teich) 44.10 mL LV Diastology E Decel Time 370 (160-240 msec) E/A Ratio 2.6 Mitral Valve MV E Max Tres. 114.0 (40-130 cm/s) MV A Velocity 44.0 (40-130 cm/s) E/A Ratio 2.60 MV PHT 108.0 ms Tricuspid Valve TR P. Velocity 254.00 cm/s RAP Estimate 10.00 mmHg RVSP 35.90 mmHg Left Ventricle The left ventricle is normal size. The left ventricular systolic function is normal. The left ventricular ejection fraction is within the normal range. Proximal septal thickening is noted. There is normal LV segmental wall motion. Diastolic function is indeterminate. LVEF is 55%. Right Ventricle The right ventricle is mildly dilated. The right ventricular systolic function is normal. There is a device lead in the right ventricle. Atria Left atrium is mildly dilated. Right atrium is mildly dilated. There is no Doppler evidence of interatrial shunt. Aortic Valve The aortic valve is mildly thickened. There is no aortic valvular stenosis. Trace aortic regurgitation. Mitral Valve s/p mitral valve annuloplasty ring. No evidence of mitral stenosis. Mean MV gradient 3 mmHg (HR 82 bpm). Trace mitral regurgitation. Tricuspid Valve The tricuspid valve leaflets are thin and pliable. Mild tricuspid regurgitation. RVSP is 25-30 mmHg. Pulmonic Valve The pulmonary valve is normal in structure. Mild pulmonic regurgitation. Great Vessels The aortic root is normal in size. The ascending aorta is not well-visualized. IVC is normal in size and collapses >50% with inspiration. Pericardium There is no pericardial effusion. Other Information Study Quality: Fair Conclusion Normal biventricular systolic function. Mild RV dilation. Mild biatrial dilation. Mild TR, mild PI. s/p MV annuloplasty ring. No evidence of significant MR or MS. Electronically signed by : Consuelo Anderson MD 07/21/2023 12:45:47
== END 2023-07-17 23:59 ==
LOC: RT 12:26
PROVIDERS: PCP Family Medicine; Visit Provider Nurse Practitioner Family
DX: Z98.890 Other specified postprocedural states (principal); R06.09 Other forms of dyspnea; Z95.0 Presence of cardiac pacemaker; I48.91 Unspecified atrial fibrillation; R53.1 Weakness
CPT/HCPCS: 93306

== ENCOUNTER 2023-07-22 18:00 | Outpatient (CLI) | payer MEDICARE, SELFPAY ==
[2023-07-22 18:28] LABS: Basophils % 0.6 % (0.1-2.0); Eosinophils # 0.1 K/mm3 (0.0-0.4); Hemoglobin 10.4 g/dL (12.2-16.2); Lymphocytes # 1.1 K/mm3 (0.7-4.5); Lymphocytes % 16.5 % (10-50); Mean Corpuscular HGB Conc 31.5 g/dL (31.8-35.4); Mean Corpuscular Hemoglobin 27.1 pg (27.0-31.2); Mean Corpuscular Volume 86.1 fl (81-99); Mean Platelet Volume 12.4 fl (7.4-10.4); Monocytes # 0.5 K/mm3 (0.1-1.0); Monocytes % 6.9 % (1.7-9.3); Neutrophils # 5.1 K/mm3 (1.8-7.8); Neutrophils % 73.9 % (37.0-80.0); Platelet Count 305 K/mm3 (142-424); Red Blood Count 3.83 M/mm3 (4.20-5.40); Red Cell Distribution Width 17.3 % (11.5-17.5); White Blood Count 6.8 K/mm3 (4.8-10.8)
[2023-07-22 18:54] LABS: Alanine Aminotransferase 12 U/L (12-78); Albumin Level 3.3 g/dl (3.5-5.0); Albumin/Globulin Ratio 1.1 (1.1-1.8); Alkaline Phosphatase 62 U/L (38-126); Anion Gap 11.1 mEq/L (5-15); Aspartate Amino Transferase 32 U/L (14-36); Bilirubin,Total 0.4 mg/dl (0.2-1.3); Blood Urea Nitrogen 16 mg/dl (7-17); Calcium 9.4 mg/dl (8.4-10.2); Carbon Dioxide 25 mmol/L (22.0-30.0); Chloride 107 mmol/L (98-107); Estimated Glomerular Filt Rate 68 ml/min (>60); GFR (African American) 82 ML/MIN (>60); Globulin 2.9 g/dL (1.3-3.2); Glucose 118 mg/dl (74-100); Potassium 4.1 mmoL/L (3.5-5.1); Sodium 139 mmol/L (136-145); Total Protein,Serum 6.2 g/dl (6.3-8.2)
[2023-07-22 19:19] LABS: Thyroid Stimulating Hormone 1.45 uIU/mL (0.465-4.68)
== END 2023-07-22 23:59 | disposition home or self-care (01) ==
LOC: LAB.DROPOF 07-23 08:37
PROVIDERS: PCP Family Medicine; Visit Provider Family Medicine
DX: R05.3 Chronic cough (principal); R53.1 Weakness; Z79.899 Other long term (current) drug therapy
CPT/HCPCS: 80053; 84443; 85025

== ENCOUNTER 2023-07-29 13:26 | Outpatient (CLI) | payer MEDICARE, SELFPAY ==
--- NOTE | 2023-07-29 13:31 | XR_ITS ---
FINAL REPORT CLINICAL HISTORY: persistant cough COMPARISON: 07/01/2020 FINDINGS: No acute pulmonary density is evident. There is no evidence of effusion or other pleural disease. Status post mitral valve replacement. Left-sided pacemaker is stable. The cardiac silhouette is unremarkable. IMPRESSION: No acute findings. Reviewed, Interpreted and Dictated by Adia Klein MD Transcribed by Gricelda Benavides Authenticated and [facility]
== END 2023-07-29 23:59 | disposition home or self-care (01) ==
LOC: RAD 13:27
PROVIDERS: PCP Family Medicine; Visit Provider Family Medicine
DX: R05.3 Chronic cough (principal)
CPT/HCPCS: 71046

== ENCOUNTER 2023-08-12 14:05 | Outpatient (CLI) | payer MEDICARE, SELFPAY ==
[2023-08-12 18:51] LABS: Basophils # 0.1 K/mm3 (0-0.2); Basophils % 0.8 % (0.1-2.0); Eosinophils # 0.1 K/mm3 (0.0-0.4); Eosinophils % 1.5 % (0.1-12.0); Hematocrit 34.1 % (37.0-47.0); Hemoglobin 10.7 g/dL (12.2-16.2); Lymphocytes # 1.1 K/mm3 (0.7-4.5); Lymphocytes % 14.6 % (10-50); Mean Corpuscular HGB Conc 31.4 g/dL (31.8-35.4); Mean Corpuscular Hemoglobin 26.2 pg (27.0-31.2); Mean Corpuscular Volume 83.6 fl (81-99); Mean Platelet Volume 11.8 fl (7.4-10.4); Monocytes # 0.6 K/mm3 (0.1-1.0); Monocytes % 8.2 % (1.7-9.3); Neutrophils # 5.7 K/mm3 (1.8-7.8); Neutrophils % 74.9 % (37.0-80.0); Platelet Count 364 K/mm3 (142-424); Red Blood Count 4.08 M/mm3 (4.20-5.40); Red Cell Distribution Width 17.5 % (11.5-17.5); White Blood Count 7.6 K/mm3 (4.8-10.8)
[2023-08-12 19:02] LABS: Chloride 105 mmol/L (98-107); Sodium 140 mmol/L (136-145)
[2023-08-12 19:05] LABS: Blood Urea Nitrogen 21 mg/dl (7-17); Calcium 9.4 mg/dl (8.4-10.2); Carbon Dioxide 26 mmol/L (22.0-30.0); Estimated Glomerular Filt Rate 68 ml/min (>60); GFR (African American) 82 ML/MIN (>60); Glucose 120 mg/dl (74-100)
== END 2023-08-12 23:59 | disposition home or self-care (01) ==
LOC: LAB.DROPOF 08-13 10:01
PROVIDERS: PCP Family Medicine; Visit Provider Family Medicine
DX: D64.9 Anemia, unspecified (principal); N28.9 Disorder of kidney and ureter, unspecified
CPT/HCPCS: 80048; 85025

== ENCOUNTER 2024-06-14 13:24 | Outpatient (CLI) | payer MEDICARE, SELFPAY ==
[2024-06-14 14:19] LABS: Basophils % 0.5 % (0.1-2.0); Eosinophils # 0.1 K/mm3 (0.0-0.4); Eosinophils % 1.3 % (0.1-12.0); Lymphocytes # 1.1 K/mm3 (0.7-4.5); Lymphocytes % 13.2 % (10-50); Mean Corpuscular HGB Conc 30.8 g/dL (31.8-35.4); Mean Corpuscular Hemoglobin 26.6 pg (27.0-31.2); Mean Corpuscular Volume 86.5 fl (81-99); Monocytes # 0.8 K/mm3 (0.1-1.0); Monocytes % 8.8 % (1.7-9.3); Neutrophils # 6.5 K/mm3 (1.8-7.8); Neutrophils % 75.9 % (37.0-80.0); Platelet Count 296 K/mm3 (142-424); Red Blood Count 4.51 M/mm3 (4.20-5.40); Red Cell Distribution Width 19.3 % (11.5-17.5); White Blood Count 8.6 K/mm3 (4.8-10.8)
[2024-06-14 15:05] LABS: Albumin Level 4.3 g/dl (3.5-5.0); Chloride 105 mmol/L (98-107); Sodium 142 mmol/L (136-145)
[2024-06-14 15:07] LABS: Blood Urea Nitrogen 18 mg/dl (7-17); Estimated Glomerular Filt Rate 68 ml/min (>60); GFR (African American) 82 ML/MIN (>60)
[2024-06-14 15:08] LABS: Alanine Aminotransferase 15 U/L (12-78); Alkaline Phosphatase 83 U/L (38-126); Aspartate Amino Transferase 25 U/L (14-36); Bilirubin,Direct 0.1 mg/dl (0.0-0.4); Bilirubin,Indirect 0.3 mg/dL (0.0-0.9); Bilirubin,Total 0.4 mg/dl (0.2-1.3); Bilirubin,Unconjugated 0.3 mg/dL (0.0-1.1); Calcium 9.9 mg/dl (8.4-10.2); Carbon Dioxide 29 mmol/L (22.0-30.0); Cholesterol 171 mg/dl (140-200); Glucose 88 mg/dl (74-100); Total Protein,Serum 7.1 g/dl (6.3-8.2); Triglycerides 148 mg/dl (30-150); VLDL Cholesterol 30 mg/dL (0-40)
[2024-06-14 15:09] LABS: Chol/HDL Ratio 2.5 (1-3.5); HDL Cholesterol 69 mg/dl (40-60)
[2024-06-14 15:20] LABS: Direct LDL Cholesterol 65.74 mg/dL (100-129)
[2024-06-14 15:25] LABS: Free T4 (Free Thyroxine) 1.09 ng/dl (0.78-2.19)
[2024-06-14 15:39] LABS: Thyroid Stimulating Hormone 2.11 uIU/mL (0.465-4.68)
== END 2024-06-14 23:59 | disposition home or self-care (01) ==
LOC: LAB 13:24
PROVIDERS: PCP Family Medicine; Visit Provider Nurse Practitioner Family
DX: I48.0 Paroxysmal atrial fibrillation (principal); Z98.890 Other specified postprocedural states; D64.9 Anemia, unspecified; Z95.0 Presence of cardiac pacemaker; R42 Dizziness and giddiness
CPT/HCPCS: 36415; 80048; 80061; 80076; 83735; 84439; 84443; 85025